=== PATIENT | female | born 1995 | race African-American/Black ===

== ENCOUNTER 2018-07-10 01:40 | Emergency (ER) | payer OTHER, SELFPAY ==
[2018-07-10 01:40] VITALS: BP 136/92; PULSE 91; RESP 16; TEMP 36.3; O2SAT 100
--- NOTE | 2018-07-10 02:05 | DI.CT.S_ITS ---
PROCEDURE: CT ABDOMEN PELVIS W CON INDICATIONS: severe mid abdominal pain, hx multiple surgeries TECHNIQUE: After the administration of intravenous contrast, 5 mm thick sections acquired from the diaphragm to the symphysis. 5 mm coronal and sagittal reformats were acquired. For radiation dose reduction, the following was used: automated exposure control, adjustment of mA and/or kV according to patient size. COMPARISON: None. FINDINGS: Image quality: Excellent. ABDOMEN: Lung bases: Lung bases are clear. Heart size is normal. Solid organs: Liver is normal in size and enhancement. Gallbladder is within normal limits. Biliary system is non dilated. Pancreas enhances normally. Spleen is normal in size and enhancement. No adrenal nodules. Kidneys demonstrate normal size and enhancement, without hydronephrosis. Peritoneum and bowel: Small hiatal hernia. Bowel loops demonstrate normal wall thickness and caliber. No free fluid or air. The appendix is normal. Nodes and vessels: No retroperitoneal or mesenteric adenopathy by size criteria. Aorta and inferior vena cava are normal in size. Miscellaneous: No ventral hernias. Surgical clip noted adjacent to the GE junction. PELVIS: Genitourinary: Bladder wall thickness is normal. 4.2 cm right adnexal cyst. Miscellaneous: No inguinal hernias or adenopathy. Bones: No suspicious bony lesions. No vertebral body compression fractures. IMPRESSION: 1. 4.2 cm right adnexal cyst. 2. No free fluid or free air. 3. No dilated loops of bowel. 4. The appendix is normal. Dictated by: Tania Goddard MD, PhD on 07/10/2018 at 9:24 Approved by: Tania Goddard MD, PhD on 07/10/2018 at 9:28
[2018-07-10] MEDS: ONDANSETRON 4 MG/2 ML INJ IV (02:31)
[2018-07-10] MEDS: PANTOPRAZOLE 40 MG VIAL IV (02:31)
[2018-07-10] MEDS: SODIUM CHLORIDE 0.9% 1,000 ML 1000 ML IV (02:31)
[2018-07-10] MEDS: HYDROMORPHONE 1 MG INJ 0.5 MG IV (02:32)
[2018-07-10 02:35] LABS: Add Manual Diff / Slide Review NO; Basophils Percent Auto 0.4 % (0-2); Eosinophils Percent Auto 0.9 % (2-4); Hematocrit 40.5 % (36-46); Hemoglobin 13.5 g/dL (12.0-16.0); Lymphocytes Percent Auto 18.5 % (25-40); Mean Corpuscular HGB Conc 33.4 % (30-36); Mean Corpuscular Hemoglobin 27.8 PG (26-34); Mean Corpuscular Volume 83.3 fL (80-100); Monocytes Percent Auto 6.9 % (3-14); Neutrophils Absolute Auto 5700 /uL (3000-5900); Neutrophils Percent Auto 73.3 % (50-75); Platelet Count 181 X10^3/uL (150-400); Red Blood Cell Count 4.86 X10^6/uL (4.0-5.2); Red Cell Distribution Width 13.7 % (11.6-14.8); White Blood Cell Count 7.8 X10^3/uL (4.5-11.0)
--- NOTE | 2018-07-10 03:06 | ED.ABDPAIN ---
HPI - Abdominal Pain General Chief Complaint: Abdominal Pain Stated Complaint: abdominal pain Time Seen by Provider: 07/10/18 01:41 Source: patient Mode of arrival: ambulatory Limitations: no limitations History of Present Illness HPI narrative: 22-year-old female with longstanding history of generalized abdominal pain presents with severe mid abdominal pain that started while at rest a few hours prior to her arrival. She denies any provocation, palliation or radiation of her symptoms. She does states she was nauseated and vomited a small amount while in the car on her way. She has had no fever or chills and denies exposure to ill persons or bad food. She denies any change in bowel habits such as constipation or diarrhea. She denies dysuria, frequency or urgency. She denies vaginal bleeding, discharge or dysuria. MD complaint: abdominal pain Onset (ago): hour(s) Pain Consistency: constant Location: periumbilical Severity: moderate Quality: cramping and aching Radiation: none Migration to: no migration Relieving factors: nothing Exacerbating factors: nothing Associated symptoms: nausea and vomiting Related Data Patient : No Previous Rx's Medication Instructions Recorded ondansetron [Zofran ODT] 8 mg SUBLINGUAL X1 #6 odt 09/03/16 ondansetron [Zofran ODT] 4 mg PO Q6H PRN #14 tab 07/10/18 pantoprazole [Protonix] 40 mg PO DAILY #20 tab 07/10/18 Allergies Allergy/AdvReac Type Severity Reaction Status Date / Time vancomycin [VANCOMYCIN] Allergy Mild NECK Unverified 02/16/18 12:27 STIFFNESS Review of Systems Review of Systems All systems reviewed & are unremarkable except as noted in HPI and below Constitutional Denies chills, Denies fever(s), Denies lethargy and Denies weakness Eyes Denies change in vision, Denies eye discharge, Denies irritation and Denies loss of vision ENT Ears, Nose, Mouth, and Throat: Denies change in voice, Denies neck pain and Denies sore throat Cardiovascular Denies chest pain, Denies irregular heart rhythm, Denies lightheadedness, Denies palpitations, Denies dyspnea, Denies dyspnea on exertion and Denies orthopnea Respiratory Denies cough, Denies dyspnea, Denies dyspnea on exertion and Denies wheezing Gastrointestinal Gastrointestinal: Reports abdominal pain, Denies change in bowel habits, Denies diarrhea, Reports nausea and Reports vomiting Genitourinary Denies hematuria, Denies flank pain, Denies urinary incontinence and Denies urinary urgency Musculoskeletal Denies neck pain Integumentary/Breasts Denies pruritus, Denies erythema, Denies rash and Denies wounds Neurologic Denies confusion, Denies loss of vision and Denies weakness Psychiatric Denies anxiety, Denies confusion, Denies depression, Denies homicidal ideation and Denies suicidal ideation Endocrine Denies palpitations Hematologic/Lymphatic Denies easy bruising Allergic/Immunologic Denies wheezing PFSH Surgical History History of Malachi fundoplication (Acute) Social History substance use type: marijuana Exam Narrative Exam Narrative: 22-year-old female in mild distress lying in the position Initial Vital Signs Initial Vital Signs: Vital Signs Temperature 97.4 F L 07/10/18 01:40 Pulse Rate 91 H 07/10/18 01:40 Respiratory Rate 16 07/10/18 01:40 Blood Pressure 136/92 H 07/10/18 01:40 Pulse Oximetry 100 07/10/18 01:40 Const General: cooperative, well developed and in distress Nutritional Appearance: well nourished Orientation: alert, awake, oriented x3 and not confused HENMT Head: normocephalic and atraumatic Ears: external ears normal and TM's normal bilaterally Nose: external nose normal and No nasal discharge Face and sinus: sinuses nontender, face symmetric, no sinus tenderness and No dry mucous membranes Mouth: oral mucosae normal and moist mucous membranes Teeth and gingiva: dentition normal Throat: tonsils normal and uvula midline Eyes General: appearance normal, both eyes and all related structures Eyelids: eyelids normal Conjunctivae: conjunctivae normal Sclera: sclerae normal Pupils: PERRL EOM: EOM intact bilaterally Chest Chest: normal inspection of the chest Resp Effort & Inspection: normal respiratory effort, able to speak in complete sentences, no respiratory distress and no use of accessory muscles Auscultation: clear to auscultation bilaterally, no rales, no rhonchi and no wheezes GI Inspection: non-distended Palpation: soft, no hepatosplenomegaly, No guarding, No pulsatile mass and tender (Mild periumbilical pain) Auscultation: normal bowel sounds Back/Spine/Pelvis Back: No CVA tenderness Cervical Spine: cervical ROM normal and No pain with cervical ROM Thoracic/Lumbar Spine: thoracic and lumbar spine normal to inspection Skin General: no rashes or lesions noted, No jaundice and No petechiae Neuro General: alert, oriented x3, gait normal and no focal motor deficits Speech: speech normal Psych Appearance: well kempt Mental Status: mental status grossly normal Attitude: cooperative Thought Content: normal and suicidality Judgment: judgment good Course Orders Ordered: ED Orders 07/10/18 02:05 CT abdomen pelvis w con Stat 07/10/18 02:20 Complete Blood Count AUTO DIFF Stat 07/10/18 02:51 Comprehensive Metabolic Panel Stat Lipase Stat 07/10/18 04:00 Urine Microscopic Stat Discontinued Medications Hydromorphone HCl (Dilaudid) 0.5 mg IV NOW ONE Stop: 07/10/18 02:04 Last Admin: 07/10/18 02:32 Dose: 0.5 mg Sodium Chloride (Normal Saline 0.9%) 1,000 mls @ 1,000 mls/hr IV BOLUS ONE Stop: 07/10/18 03:02 Last Admin: 07/10/18 02:31 Dose: 1,000 mls/hr Ondansetron HCl (Zofran) 4 mg IV NOW ONE Stop: 07/10/18 02:04 Last Admin: 07/10/18 02:31 Dose: 4 mg Pantoprazole Sodium (Protonix) 40 mg IV NOW ONE Stop: 07/10/18 02:04 Last Admin: 07/10/18 02:31 Dose: 40 mg Vital Signs - 8 hr 07/10/18 01:40 07/10/18 04:40 Temperature 97.4 F L Pulse Rate 91 H 64 Respiratory Rate 16 16 Blood Pressure 136/92 H Blood Pressure [Right Arm] 114/58 L Pulse Oximetry 100 MDM - Abdominal Pain Differential Diagnosis Differential diagnosis: Likely abdominal pain, acute appendicitis, calculus of kidney, constipation, diverticulitis, endometriosis, gastroenteritis, pancreatitis, small bowel obstruction and other Medical Records Attestation: I reviewed the patient's medical records. Lab Data Attestation: I reviewed the patient's lab results. Result diagrams: 07/10/18 02:20 07/10/18 02:51 Lab Results 07/10/18 07/10/18 07/10/18 Range/Units 02:20 02:51 04:00 WBC 7.8 (4.5-11.0) X10^3/uL RBC 4.86 (4.0-5.2) X10^6/uL Hgb 13.5 (12.0-16.0) g/dL Hct 40.5 (36-46) % MCV 83.3 (80-100) fL MCH 27.8 (26-34) PG MCHC 33.4 (30-36) % RDW 13.7 (11.6-14.8) % Plt Count 181 (150-400) X10^3/uL Neut % (Auto) 73.3 (50-75) % Lymph % (Auto) 18.5 L (25-40) % [place] % (Auto) 6.9 (3-14) % Eos % (Auto) 0.9 L (2-4) % Baso % (Auto) 0.4 (0-2) % Neut # (Auto) 5700 (7477-8021) /uL Sodium 143 (137-145) mmol/L Potassium 3.9 (3.4-5.1) mmol/L Chloride 111 H (98-107) mmol/L Carbon Dioxide 25 (22-32) mmol/L BUN 11 (7-17) mg/dL Creatinine 0.90 (0.52-1.04) mg/dL Estimated GFR > 60.0 (>60) mL/min BUN/Creatinine Ratio 12.2 (6-22) Glucose 93 (70-100) mg/dL Calcium 8.7 (8.4-10.2) mg/dL Total Bilirubin 0.5 (0.2-1.3) mg/dL AST 24 (14-36) IU/L ALT 21 (9-52) IU/L Alkaline Phosphatase 67 (38-126) U/L Total Protein 6.5 (6.3-8.2) g/dL Albumin 3.8 (3.5-5.0) g/dL Globulin 2.7 (1.7-4.1) g/dL Albumin/Globulin Ratio 1.4 (1.0-2.8) Lipase 116 (23-300) U/L Urine RBC 30-100/hpf H (0-5/HPF) Urine WBC 1-5/hpf (0-5/HPF) Ur Squamous Epith Cells 1-5 /hpf Urine Bacteria Occasional (0-1) (None) Ur Culture Indicated? Cult not indicated Micro UA Comment Not Reportable Point of care testing: Point of Care Testing Test Results Negative Urine Dip Bedside Urine Glucose Negative Bedside Urine Bilirubin - Negative Bedside Urine Ketone +++ 80 Urine Specific [place] 1.030 Bedside Urine Occult Blood +++ Bedside Urine pH 6.0 Bedside Urine Protein + 30 Bedside Urine Urobilinogen - Negative Bedside Urine Nitrite - Negative Bedside Urine Leukocytes - Negative Esterase Imaging Data CT scan - abdomen: Radiologist's impression: No acute findings. R ovarian cyst. Hiatal hernia MDM Narrative Medical decision making narrative: patient with severe midbelly pain that has dramatically improved prior to her arrival. She denies provocation/palliation/radiation. One episode of vomiting thought due to pain. Labs largely normal. Blood in urine, but she just started her menses. CT without acute findings. Dx likely GERD, ulcer, gastritis vs. other Discharge Plan Departure Patient Disposition: Home Clinical Impression: Abdominal pain Instructions: DI for Abdominal Pain-Adult Activity Restrictions/Additional Instructions: 1. Drink plenty of fluids with frequent small sips. 2. For the next 24 hours a clear liquid diet is advised. After that please employ a brat diet which would include bananas, rice, apples, toast. 3. Please take medications as directed. 4. Please follow-up with your doctor in the next 1-2 days. Call the office for an appointment. 5. Please return to the emergency Department for any worsening or persistent symptoms, such as increasing pain or fever. Prescriptions: New ondansetron [Zofran ODT] 4 mg tablet,disintegrating 4 mg PO Q6H PRN (Reason: nausea and vomiting) Qty: 14 RF: 0 pantoprazole [Protonix] 40 mg tablet,delayed release (DR/EC) 40 mg PO DAILY Qty: 20 RF: 0 No Action ondansetron [Zofran ODT] 8 MG tablet,disintegrating 8 mg Sublingual X1 Qty: 6 RF: 0
[2018-07-10 03:12] LABS: Alanine Aminotransferase 21 IU/L (9-52); Albumin 3.8 g/dL (3.5-5.0); Albumin Globulin Ratio 1.4 (1.0-2.8); Alkaline Phosphatase 67 U/L (38-126); Aspartate Aminotransferase 24 IU/L (14-36); BUN Creatinine Ratio 12.2 (6-22); Bilirubin Total 0.5 mg/dL (0.2-1.3); Blood Urea Nitrogen 11 mg/dL (7-17); Calcium 8.7 mg/dL (8.4-10.2); Carbon Dioxide 25 mmol/L (22-32); Chloride 111 mmol/L (98-107); Estimated Glomerular Filt Rate > 60.0 mL/min (>60); Globulin 2.7 g/dL (1.7-4.1); Glucose 93 mg/dL (70-100); HEMOLYSIS < 15 (0-50); Lipase 116 U/L (23-300); Potassium 3.9 mmol/L (3.4-5.1); Sodium 143 mmol/L (137-145); Total Protein 6.5 g/dL (6.3-8.2)
[2018-07-10 04:37] LABS: RBC Urine 30-100/HPF (0-5/HPF)
[2018-07-10 04:38] LABS: Bacteria Urine Occasional (0-1); Culture Indicated Urine Cult Not Indicated; Squamous Epithelial Cell Urine 1-5 /HPF; WBC Urine 1-5/HPF (0-5/HPF)
[2018-07-10 04:40] VITALS: BP 113/56; BP 114/58; PULSE 56; PULSE 64; RESP 16; O2SAT 98
[2018-07-10 06:06] VITALS: BP 112/74; PULSE 59; RESP 15; O2SAT 98
== END 2018-07-10 06:06 | disposition home or self-care (01) ==
PROVIDERS: Emergency Provider Emergency Medicine; Family Provider Family Medicine; PCP Family Medicine
DX: R10.9 Unspecified abdominal pain (principal)
CPT/HCPCS: 36415; 36591; 74177; 80053; 81003; 81015; 81025; 83690; 85025; 96361; 96374; 96375; 99283; 99284; C9113; J1170; J2405; Q9967

== ENCOUNTER → 2018-11-30 10:51 | Outpatient (CLI) | payer OTHER, MEDICAID, SELFPAY ==
[2018-11-30 11:34] LABS: Add Manual Diff / Slide Review NO; Basophils Absolute Auto 0 /uL (0-100); Basophils Percent Auto 0.9 % (0-2); Eosinophils Absolute Auto 100 /uL (0-450); Eosinophils Percent Auto 1.3 % (2-4); Hematocrit 37.4 % (36-46); Hemoglobin 12.3 g/dL (12.0-16.0); Lymphocytes Absolute Auto 1300 /uL (1100-4500); Lymphocytes Percent Auto 29.3 % (25-40); Mean Corpuscular Hemoglobin 27.4 PG (26-34); Mean Corpuscular Volume 83.1 fL (80-100); Monocytes Absolute Auto 300 /uL (0-900); Neutrophils Absolute Auto 2600 /uL (1500-7000); Neutrophils Percent Auto 61.5 % (50-75); Platelet Count 175 X10^3/uL (150-400); Red Cell Distribution Width 13.2 % (11.6-14.8); White Blood Cell Count 4.3 X10^3/uL (4.5-11.0)
[2018-11-30 11:36] LABS: Appearance Urine UA CLEAR; Bilirubin Urine UA NEGATIVE (NEGATIVE); Color Urine UA YELLOW; Glucose Urine UA NEGATIVE (Negative); Ketones Urine UA NEGATIVE (NEGATIVE); Leukocyte Esterase Urine UA NEGATIVE (NEGATIVE); Nitrite Urine UA NEGATIVE (Negative); Occult Blood Urine UA NEGATIVE (Negative); Protein Urine UA NEGATIVE (Negative); Urobilinogen Urine UA 0.2 E.U./dL (0.2)
[2018-11-30 12:21] LABS: Hepatitis B Surface Antigen NEGATIVE s/c (NEGATIVE)
[2018-11-30 12:38] LABS: HIV 1 and 2 Antibody NEGATIVE (NEGATIVE); Hep C Virus Ab w/Reflex Quant NEGATIVE s/c (NEGATIVE)
[2018-12-02 21:59] LABS: RPR Screen Nonreactive (Nonreactive)
== END ==
PROVIDERS: PCP Family Medicine; Visit Provider Family Medicine
DX: Z34.91 Encounter for supervision of normal pregnancy, unspecified, first trimester (principal)
CPT/HCPCS: 36415; 80055; 81003; 86703; 86787; 86803; 86850; 86900; 86901; 87086

== ENCOUNTER → 2018-12-09 14:37 | Outpatient (CLI) | payer OTHER, MEDICAID, SELFPAY ==
--- NOTE | 2018-12-09 14:42 | DI.US.S_ITS ---
PROCEDURE: US OB <= 14 WEEKS FETUS INDICATIONS: Dating US OUTSIDE/PRIOR DATING DATA: Last menstrual period (LMP): Not available. LMP-based estimated date of delivery (BRYAN): Not available. First dating scan (date and location): This study, 12/09/18. Estimated date of delivery (BRYAN) from first dating scan: 06/26/19, plus or -5 days. TECHNIQUE: Real-time scanning was performed of the fetus and maternal pelvic organs, with image documentation. Endovaginal scanning was also performed to better visualize the fetus and maternal ovaries. COMPARISON: None. FINDINGS: Embryo: [place] rump length 4.8 cm correlates with a gestational age estimate 11 weeks 4 days, plus or -5 days, and cardiac activity at 171 beats per minute is noted. Measurement variability in dating: +/- 4 weeks by LMP, +/- 7 days by mean sac diameter (use before 6 weeks gestation if crown-rump length not able to be measured), +/- 5 days by crown-rump length (up to 8 weeks 6 days gestation), +/- 7 days by crown-rump length (up to 13 weeks 6 days gestation). Maternal organs: Ovaries are well-visualized and there is a left ovarian cyst measuring up to 4.0 x 4.8 x 5.9 cm. The left ovary overall measures 5.9 x 4.0 x 4.4 cm as a result. No sign of ovarian torsion is present.. Limited images through the kidneys demonstrate no hydronephrosis. IMPRESSION: Early first trimester gestation with gestational age of 11 weeks 4 days, plus or -5 days. The liver is projected to be centered on 06/26/19. Followup anatomic survey at 21 weeks gestation is recommended. At that time further assessment for persistence of a dominant left ovarian cyst is recommended, measuring up to 5.9 cm. Dictated by: Ross Her M.D. on 12/09/2018 at 15:53 Approved by: Ross Her M.D. on 12/09/2018 at 15:55
== END ==
PROVIDERS: Family Provider Family Medicine; PCP Family Medicine; Visit Provider Family Medicine
DX: O34.81 Maternal care for other abnormalities of pelvic organs, first trimester (principal); N83.202 Unspecified ovarian cyst, left side; Z3A.11 11 weeks gestation of pregnancy
CPT/HCPCS: 76801

== ENCOUNTER → 2019-02-07 12:13 | Outpatient (CLI) | payer OTHER, MEDICAID, SELFPAY ==
--- NOTE | 2019-02-07 12:16 | DI.US.S_ITS ---
PROCEDURE: US OB >= 14 WEEKS FETUS INDICATIONS: anatomy screening OUTSIDE/PRIOR DATING DATA: Last menstrual period (LMP): Unknown. LMP-based estimated date of delivery (BRYAN): Unknown. First dating scan (date and location): 12/09/18. Estimated date of delivery (BRYAN) from first dating scan: 06/26/19. TECHNIQUE: Real-time scanning was performed of the fetus, with image documentation and biometric measurements. Endovaginal scanning: None COMPARISON: None. FINDINGS: General: A single living intrauterine gestation is present. Presentation: Vertex. Placenta: Placental position is posterior, without previa. Amniotic fluid index: 9.8 cm, normal range is 5-24 cm. heart rate: 155 beats per minute. Maternal cervical canal: 3.9 cm long. Normal lower limit is 2.5 cm. biometrics: Biparietal diameter: 4.4 cm, 19 weeks 3 days Head circumference: 16.7 cm, 19 weeks 3 days Abdominal circumference: 14.4 cm, 19 weeks 5 days Femur length: 3.2 cm, 20 weeks zero days Estimated gestational age from initial scan: 20 weeks one day Composite gestational age from present scan: 19 weeks 5 days Estimated weight and percentile: 312 g, 26 percentile Measurement variability for biometric dating: +/- 7 days from 14 weeks to 15 weeks 6 days gestation, +/- 10 days from 16 weeks to 21 weeks 6 days gestation, +/- 2 weeks from 22 weeks to 27 weeks 6 days gestation, +/- 3 weeks for 28 weeks gestation or later. weight reference: 4500 g or EFW >90/95% is considered macrosomia or large for gestational age. EFW <10% is small for gestational age. EFW 5% or less is considered intra-uterine growth restriction. Anatomic survey: Neuro: Ventricles are non-dilated at less than 10 mm. Cisterna magna is normal at 3-11 mm. Cerebellum is normal in size and morphology. Nuchal skin fold: Normal at less than 6 mm between 14-21 weeks gestational age. Face: Nose and lips, facial profile are normal. Spine: No evidence for spina bifida. Heart: 4-chambered heart is present, with normal ventricular outflow tracts. Diaphragm: Diaphragm is intact. Stomach: Left-sided stomach is present. Kidneys: No hydronephrosis. Normal is less than 5 mm in 2nd trimester, less than 7 mm in 3rd trimester. Cord: 3-vessel cord has orthotopic insertion. Bladder: Normal in size. Extremities: All 4 extremities identified. IMPRESSION: Normal anatomical survey. Ultrasound age is 2 days less than ultrasound age established on initial study. Normal interval growth. Dictated by: Edson Valencia M.D. on 02/07/2019 at 14:51 Approved by: Edson Valencia M.D. on 02/07/2019 at 14:58
[2019-02-13 14:47] LABS: AFP, Serum 36.7 ng/mL; Calc Gestational Age 20.1; Cigarette Smoker N; Donated Egg NOT GIVEN; Donor Egg Age NOT GIVEN; Estriol, Free 1.99 ng/mL; Inhibin A, Dimeric 386 pg/mL; Maternal Ethnicity AFRICAN AMERICAN; Maternal Weight 136 lbs; Number of Fetuses NOT GIVEN; Previous Pregnancy Down Syndro NOT GIVEN; hCG, MoM 0.93; hCG, Serum 20.5 IU/mL
== END ==
PROVIDERS: Family Provider Family Medicine; PCP Family Medicine; Visit Provider Family Medicine
DX: Z36.89 Encounter for other specified antenatal screening (principal); Z3A.19 19 weeks gestation of pregnancy
CPT/HCPCS: 36415; 76811; 82105; 82677; 84702; 86336

== ENCOUNTER → 2019-03-09 15:15 | Outpatient (CLI) | payer OTHER, MEDICAID, SELFPAY ==
[2019-03-12 15:57] LABS: Mitogen-NIL 7.23 IU/mL; NIL 0.01 IU/mL; QuantiFERON TB NEGATIVE (Negative); TB1-NIL 0.01 IU/mL; TB2-NIL < 0.01 IU/mL
== END ==
PROVIDERS: PCP Family Medicine; Visit Provider Family Medicine
DX: Z34.02 Encounter for supervision of normal first pregnancy, second trimester (principal)
CPT/HCPCS: 36415; 86480

== ENCOUNTER → 2019-04-06 11:00 | Outpatient (CLI) | payer OTHER, MEDICAID, SELFPAY ==
[2019-04-06 12:47] LABS: Hematocrit 31.8 % (36-46); Hemoglobin 10.6 g/dL (12.0-16.0)
[2019-04-06 13:13] LABS: GTT (PREG) 1 Hour PP 50gm Dose 74 mg/dL (76-139)
== END ==
PROVIDERS: PCP Family Medicine; Visit Provider Family Medicine
DX: Z34.02 Encounter for supervision of normal first pregnancy, second trimester (principal); Z3A.25 25 weeks gestation of pregnancy
CPT/HCPCS: 36415; 82950; 85014; 85018

== ENCOUNTER → 2019-04-24 11:29 | Outpatient (CLI) | payer OTHER, MEDICAID, SELFPAY ==
[2019-04-24 11:37] LABS: RBC Urine None Seen (0-5/HPF); WBC Urine None Seen (0-5/HPF)
[2019-04-24 12:27] LABS: Add Manual Diff / Slide Review NO; Basophils Absolute Auto 0 /uL (0-100); Basophils Percent Auto 0.3 % (0-2); Eosinophils Absolute Auto 0 /uL (0-450); Eosinophils Percent Auto 0.6 % (2-4); Hematocrit 34.7 % (36-46); Hemoglobin 11.3 g/dL (12.0-16.0); Lymphocytes Absolute Auto 1400 /uL (1100-4500); Lymphocytes Percent Auto 25.8 % (25-40); Mean Corpuscular HGB Conc 32.6 % (30-36); Mean Corpuscular Hemoglobin 28.2 PG (26-34); Mean Corpuscular Volume 86.7 fL (80-100); Monocytes Absolute Auto 400 /uL (0-900); Monocytes Percent Auto 8.1 % (3-14); Neutrophils Absolute Auto 3400 /uL (1500-7000); Neutrophils Percent Auto 65.2 % (50-75); Platelet Count 144 X10^3/uL (150-400); Red Cell Distribution Width 13.7 % (11.6-14.8); White Blood Cell Count 5.3 X10^3/uL (4.5-11.0)
[2019-04-24 12:28] LABS: Bilirubin Urine UA NEGATIVE (NEGATIVE); Color Urine UA YELLOW; Glucose Urine UA NEGATIVE (Negative); Ketones Urine UA NEGATIVE (NEGATIVE); Leukocyte Esterase Urine UA NEGATIVE (NEGATIVE); Nitrite Urine UA NEGATIVE (Negative); Occult Blood Urine UA NEGATIVE (Negative); Protein Urine UA NEGATIVE (Negative); Urobilinogen Urine UA 0.2 E.U./dL (0.2); pH Urine UA 7.5 (4.5-8.0)
[2019-04-24 12:29] LABS: Appearance Urine UA Cloudy
[2019-04-24 12:43] LABS: Amorphous Sediment Urine 2+; Bacteria Urine Few (2-10); Culture Indicated Urine Cult Not Indicated; Squamous Epithelial Cell Urine 0-1 /HPF (0-5/HPF)
[2019-04-24 13:15] LABS: Alanine Aminotransferase 12 IU/L (9-52); Albumin 3.5 g/dL (3.5-5.0); Albumin Globulin Ratio 1.3 (1.0-2.8); Alkaline Phosphatase 79 U/L (38-126); Aspartate Aminotransferase 19 IU/L (14-36); BUN Creatinine Ratio 8.8 (6-22); Bilirubin Total 0.3 mg/dL (0.2-1.3); Blood Urea Nitrogen 7 mg/dL (7-17); Carbon Dioxide 26 mmol/L (22-32); Chloride 107 mmol/L (98-107); Estimated Glomerular Filt Rate > 60.0 mL/min (>60); Globulin 2.7 g/dL (1.7-4.1); Glucose 60 mg/dL (70-100); HEMOLYSIS < 15 (0-50); Potassium 3.9 mmol/L (3.4-5.1); Sodium 139 mmol/L (137-145); Total Protein 6.2 g/dL (6.3-8.2)
== END ==
PROVIDERS: PCP Family Medicine; Visit Provider Family Medicine
DX: R10.11 Right upper quadrant pain (principal)
CPT/HCPCS: 36415; 80053; 81001; 85025

== ENCOUNTER → 2019-04-28 08:07 | Outpatient (CLI) | payer OTHER, MEDICAID, SELFPAY ==
--- NOTE | 2019-04-28 08:08 | DI.US.S_ITS ---
PROCEDURE: US ABDOMEN COMPLETE INDICATIONS: RIGHT UPPER QUADRANT PAIN TECHNIQUE: Real-time scanning was performed of the abdominal and retroperitoneal organs, with image documentation. COMPARISON: None. FINDINGS: Liver: Liver is normal in size and homogeneous in echotexture. Gallbladder: There is no gallstone. No gallbladder wall thickening or pericholecystic fluid. No sonographic Galvin's sign. Biliary ducts: Intrahepatic bile ducts are non-dilated. Extrahepatic bile duct caliber measures 3.5 mm. Normal is 6-7 mm or less in diameter, or 10 mm or less post-cholecystectomy. Pancreas: Visualized portions of the pancreas are sonographically normal. Spleen: Spleen is normal in size and homogeneous in echotexture. Kidneys: Kidneys are normal in size and echotexture. Right kidney measures 9.8 cm long; left kidney measures 9.9 cm long. No hydronephrosis or nephrolithiasis. No solid masses. Aorta: Visualized aorta is normal in caliber at less than 3 cm. Iliacs: Proximal common iliac arteries are normal in caliber at less than 2.5 cm. IVC: Intrahepatic inferior vena cava is patent. Miscellaneous: No free abdominal fluid. IMPRESSION: Unremarkable ultrasound examination of abdomen. Dictated by: Dave Abarca M.D. on 04/28/2019 at 9:31 Approved by: Dave Abarca M.D. on 04/28/2019 at 9:36
== END ==
PROVIDERS: PCP Family Medicine; Visit Provider Family Medicine
DX: R10.11 Right upper quadrant pain (principal)
CPT/HCPCS: 76700

== ENCOUNTER 2019-05-17 19:52 | Observation (INO) | payer OTHER, MEDICAID, SELFPAY ==
[2019-05-17] MEDS: LACTATED RINGERS 1,000 ML 1000 ML IV ×2 (21:00→22:10)
== END 2019-05-17 23:05 | disposition home or self-care (01) ==
PROVIDERS: Admitting Provider Obstetrics & Gynecology; PCP Family Medicine; Visit Provider Obstetrics & Gynecology
DX: O21.2 Late vomiting of pregnancy (principal); R19.7 Diarrhea, unspecified; Z3A.34 34 weeks gestation of pregnancy
CPT/HCPCS: 59025; 59050; 96360; G0378; G0379

== ENCOUNTER 2019-05-18 03:19 | Observation (INO) | payer OTHER, MEDICAID, SELFPAY ==
[2019-05-18] MEDS: LOPERAMIDE 2 MG CAPSULE PO (04:02)
[2019-05-18] MEDS: LACTATED RINGERS 1,000 ML, LACTATED RINGERS 1,000 ML 1000 ML IV (04:03)
== END 2019-05-18 07:25 | disposition home or self-care (01) ==
PROVIDERS: Admitting Provider Obstetrics & Gynecology; PCP Family Medicine; Visit Provider Obstetrics & Gynecology
DX: O26.893 Other specified pregnancy related conditions, third trimester (principal); R10.9 Unspecified abdominal pain; R11.11 Vomiting without nausea; Z3A.34 34 weeks gestation of pregnancy
CPT/HCPCS: 59025; 59050; 96360; G0378; G0379

== ENCOUNTER → 2019-05-29 08:39 | Outpatient (CLI) | payer OTHER, MEDICAID, SELFPAY ==
[2019-05-30 14:58] LABS: Strep Grp B PCR NEG for Grp B Strep
== END ==
PROVIDERS: PCP Family Medicine; Visit Provider Family Medicine
DX: Z3A.36 36 weeks gestation of pregnancy (principal)
CPT/HCPCS: 87653

== ENCOUNTER 2019-06-05 11:25 | Outpatient (CLI) | payer OTHER, MEDICAID, SELFPAY ==
--- NOTE | 2019-06-05 13:20 | P.TNLD_ITS ---
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) Septic joint (Resolved) Surgical History History of Malachi fundoplication (Resolved ~2006) History of hip surgery (Resolved) History of tonsillectomy (Resolved) [place] teeth removed (Resolved) Family History Mother Chronic nephritis Grandmother History of Graves' disease Social History (Updated 07/10/18 @ 03:11 by Anthony Rolle DO) Smoking Status: Never smoker substance use type: marijuana Family History Mother Chronic nephritis Grandmother History of Graves' disease Social History Smoking Status: Never smoker substance use type: marijuana Evaluation Evaluation Baseline heart rate: 130 Variability: Moderate (11-25) monitor accelerations: Present monitor decelerations: Absent Diagnosis, Plan/Disposition Final Diagnosis (1) 37 weeks gestation of : Current Visit: No Status: Acute Plan/Disposition Plan: 23 year old at 37+1 weeks gestation. Reactive NST today. Seen last week by MFM for h/o JRA, found to have abdominal circumference at the 3rd percentile though remainder of growth on track with EFW at the 21st percentile. Concern for growth restriction. Will continue weekly NST per MFM and repeat US later this week. OB Disposition: home
== END 2019-06-05 12:22 | disposition home or self-care (01) ==
LOC: LABOR 11:43 → OB 06-06 10:31
PROVIDERS: PCP Family Medicine; Visit Provider Family Medicine
DX: O26.893 Other specified pregnancy related conditions, third trimester (principal); Z3A.37 37 weeks gestation of pregnancy
CPT/HCPCS: 59025; G0378; G0379

== ENCOUNTER → 2019-06-09 08:07 | Outpatient (CLI) | payer OTHER, MEDICAID, SELFPAY ==
--- NOTE | 2019-06-09 08:09 | DI.US.S_ITS ---
PROCEDURE: OB FOLLOW UP INDICATIONS: CONCERN FOR INTRAUTERINE GROWTH RESTRICTION OUTSIDE/PRIOR DATING DATA: Last menstrual period (LMP): Unknown. LMP-based estimated date of delivery (BRYAN): Unknown. First dating scan (date and location): 12/09/18. Estimated date of delivery (BRYAN) from first dating scan: 06/26/19. TECHNIQUE: Real-time scanning was performed of the fetus, with image documentation and biometric measurements. Endovaginal scanning: Not performed COMPARISON: [facility] OB >= 14 WEEKS FETUS, 02/07/2019, 12:39. [facility] OB <= 14 WEEKS FETUS, 12/09/2018, 14:57. FINDINGS: General: A single living intrauterine gestation is present. Presentation: Vertex. Placenta: Placental position is posterior, without previa. Amniotic fluid index: 13.0 cm, normal range is 5-24 cm. heart rate: 128 beats per minute. Maternal cervical canal: Not visualized biometrics: Biparietal diameter: 9.1 cm, 36 weeks 6 days Head circumference: 32.4 cm, 36 weeks 5 days Abdominal circumference: 29.4 cm, 33 weeks 3 days Femur length: 7.3 cm, 37 weeks 3 days Estimated gestational age from initial scan: 37 weeks 4 days Composite gestational age from present scan: 36 weeks one day Estimated weight and percentile: 2626 g, 10th percentile Measurement variability for biometric dating: +/- 7 days from 14 weeks to 15 weeks 6 days gestation, +/- 10 days from 16 weeks to 21 weeks 6 days gestation, +/- 2 weeks from 22 weeks to 27 weeks 6 days gestation, +/- 3 weeks for 28 weeks gestation or later. weight reference: 4500 g or EFW >90/95% is considered macrosomia or large for gestational age. EFW <10% is small for gestational age. EFW 5% or less is considered intra-uterine growth restriction. Other: 3 mm echogenic focus dome possibly calcification seen adjacent to the stomach of unknown etiology or clinical significance.. IMPRESSION: Intrauterine fetus demonstrating interval growth as above. Estimated weight 2626 g, 10th percentile (previously 26th percentile on 02/07/19). Dictated by: Kalus Blanchard M.D. on 06/09/2019 at 12:43 Approved by: Klaus Blanchard M.D. on 06/09/2019 at 12:48
== END ==
PROVIDERS: PCP Family Medicine; Visit Provider Family Medicine
DX: Z36.4 Encounter for antenatal screening for fetal growth retardation (principal); Z3A.36 36 weeks gestation of pregnancy
CPT/HCPCS: 76816

== ENCOUNTER 2019-06-14 10:49 | Outpatient (CLI) | payer OTHER, MEDICAID, SELFPAY ==
--- NOTE | 2019-06-14 11:57 | PM.OBTRLD ---
Visit Information Visit Information Date of evaluation: 06/14/19 Primary OB Provider: Maribell Reza On-call OB Provider: Marnie Romo Reason for Evaluation: Yes non-stress test non-stress test reason: other (small AC on US for fundal height> dates) PFSH Social History Smoking Status: Never smoker substance use type: marijuana Evaluation Evaluation Baseline heart rate: 140 Variability: Moderate (11-25) monitor accelerations: Present monitor decelerations: Absent Diagnosis, Plan/Disposition Final Diagnosis (1) 38 weeks gestation of : Current Visit: No Status: Acute (2) SGA (small for gestational age), , affecting care of mother, antepartum: Current Visit: No Status: Acute Plan/Disposition Plan: Reactive nonstress test. ELENA has decreased to 7. Keep follow-up appointment with primary OB provider in 4 days repeat ELENA at that time OB Disposition: home
== END 2019-06-14 11:53 | disposition home or self-care (01) ==
LOC: LABOR 11:27 → OB 06-15 12:04
PROVIDERS: PCP Family Medicine; Visit Provider Specialist
DX: O36.5930 Maternal care for other known or suspected poor fetal growth, third trimester, not applicable or unspecified (principal); Z3A.38 38 weeks gestation of pregnancy
CPT/HCPCS: 59025; 76815; G0378; G0379

== ENCOUNTER 2019-06-19 09:10 | Outpatient (CLI) | payer OTHER, MEDICAID, SELFPAY ==
--- NOTE | 2019-06-19 12:46 | PM.OBTRLD ---
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) Septic joint (Resolved) Surgical History History of Malachi fundoplication (Resolved ~2006) History of hip surgery (Resolved) History of tonsillectomy (Resolved) [place] teeth removed (Resolved) Family History Mother Chronic nephritis Grandmother History of Graves' disease Social History Smoking Status: Never smoker substance use type: marijuana Family History Mother Chronic nephritis Grandmother History of Graves' disease Social History Smoking Status: Never smoker substance use type: marijuana Evaluation Evaluation Baseline heart rate: 140 Variability: Moderate (11-25) monitor accelerations: Present monitor decelerations: Absent Category of Tracing: I Diagnosis, Plan/Disposition Plan/Disposition Plan: Reactive NST. ELENA 12.9, up from 7 last week. Plan for induction at 40 weeks due to small for dates measurements without IUGR.
== END 2019-06-19 09:48 | disposition home or self-care (01) ==
LOC: OB 12:29
PROVIDERS: PCP Family Medicine; Visit Provider Family Medicine
DX: O36.5930 Maternal care for other known or suspected poor fetal growth, third trimester, not applicable or unspecified (principal); Z3A.39 39 weeks gestation of pregnancy
CPT/HCPCS: 59025; G0378; G0379

== ENCOUNTER → 2019-06-19 11:39 | Outpatient (CLI) | payer OTHER, MEDICAID, SELFPAY ==
--- NOTE | 2019-06-19 11:40 | DI.US.S_ITS ---
PROCEDURE: US OB LIMITED INDICATIONS: decreased ELENA on exam last week from 14 to 7 OUTSIDE/PRIOR DATING DATA: Last menstrual period (LMP): Not available. LMP-based estimated date of delivery (BRYAN): Not available. First dating scan (date and location): Dr. Mclaughlin, 12/09/18. Estimated date of delivery (BRYAN) from first dating scan: 06/26/19. TECHNIQUE: Real-time scanning was performed of the fetus, with image documentation. Endovaginal scanning: Not needed for this study COMPARISON: None. FINDINGS: A single living intrauterine gestation is present. Presentation: Vertex. Placenta: Placental position is posterior, previously documented without previa. Maternal cervical canal: Not seen due to deep vertex presentation. Amniotic fluid index: Normal. IMPRESSION: Normal amniotic fluid volume. Vertex presentation which obscures visualization of the maternal cervical length. Dictated by: Ross Her M.D. on 06/19/2019 at 13:05 Approved by: Ross Her M.D. on 06/19/2019 at 13:10
== END ==
PROVIDERS: PCP Family Medicine; Visit Provider Family Medicine
DX: O28.8 Other abnormal findings on antenatal screening of mother (principal); O36.5990 Maternal care for other known or suspected poor fetal growth, unspecified trimester, not applicable or unspecified; Z3A.39 39 weeks gestation of pregnancy
CPT/HCPCS: 59025; 76815

== ENCOUNTER 2019-06-25 16:04 | Inpatient (IN) | payer OTHER, MEDICAID, SELFPAY ==
[2019-06-25] MEDS: DINOPROSTONE VAG (CERVIDIL) 10 MG VAG (16:57)
[2019-06-25 21:14] LABS: Add Manual Diff / Slide Review NO; Basophils Absolute Auto 0 /uL (0-100); Basophils Percent Auto 0.4 % (0-2); Eosinophils Absolute Auto 0 /uL (0-450); Eosinophils Percent Auto 0.5 % (2-4); Hemoglobin 11.9 g/dL (12.0-16.0); Lymphocytes Absolute Auto 2400 /uL (1100-4500); Lymphocytes Percent Auto 28.6 % (25-40); Mean Corpuscular HGB Conc 33.9 % (30-36); Mean Corpuscular Hemoglobin 28.5 PG (26-34); Monocytes Absolute Auto 700 /uL (0-900); Monocytes Percent Auto 8.2 % (3-14); Neutrophils Absolute Auto 5300 /uL (1500-7000); Neutrophils Percent Auto 62.3 % (50-75); Platelet Count 159 X10^3/uL (150-400); Red Blood Cell Count 4.16 X10^6/uL (4.0-5.2); Red Cell Distribution Width 13.8 % (11.6-14.8); White Blood Cell Count 8.5 X10^3/uL (4.5-11.0)
[2019-06-25] MEDS: ZOLPIDEM 5 MG TABLET PO (21:53)
[2019-06-26] MEDS: LACTATED RINGERS 1,000 ML 100 ML IV ×2 (06:30→09:39)
[2019-06-26] MEDS: OXYTOCIN PREMIX 30 UNIT/500 ML PLAST..BAG IV (06:45)
--- NOTE | 2019-06-26 07:04 | P.HPOB_ITS ---
OB HPI Date/Time Date of admission: 06/25/19 Date Patient Seen: 06/26/19 Time Patient Seen: 07:15 History of Present Condition Chief complaint: eval of labor : 1 Para: 0 Estimated Date of Delivery: 06/26/19 Estimated Gestational Age (weeks): 40 Narrative: Nasim Trivedi is a 23 year old at 40 weeks here for induction for size<dates noted the last month of . Serial ultrasounds consistently showed decreased abdominal circumference but remaining measurements on track with normal fluid volumes. Patient had weekly NSTs due to h/o JRA (inactive during ). Patient was admitted last night for Cervidil. She slept well overnight and endorses some cramping this morning. Indications Indication for induction OB: other (size<dates, concern for SGA) History of Present care: good care, initiated at week # (12), number of visits (13) and pounds weight gain (15) Dating criteria: based on 1st trimester US only Ultrasounds: normal 1st trimester US and normal mid trimester US Abnormal ultrasound findings: Abdominal circumference in the 3rd percent 35 weeks, repeat ultrasound done at 30 weeks showed persistently small abdominal circumference behind other measurements. Obstetrical complications: none Medical complications: gastrointestinal (GERD) Preadmission Labs Blood type: B (+) positive -: Antibody screen: negative, GBS status: negative, HBsAG: negative, HIV: negative and RPR/VDLR: negative -: Chlamydia screen: not detected and Gonorrhea screen: not detected -: Rubella: immune and Varicella: immune HCT: 37.4 HCAB: negative PAP: Abnormal (ASCUS) Quad screen: Normal Urine: Negative 1 hr GTT: 74 Evaluation Evaluation Baseline heart rate: 130 Variability: Moderate (11-25) monitor accelerations: Present monitor decelerations: Absent Contraction Frequency (minutes): 4 Uterine Contraction Intensity: Moderate Category of Tracing: I Cervical dilation (cm): 3 Cervical effacement (%): 90 station: 0 Laboratory results: Laboratory Tests 06/25/19 06/25/19 20:55 20:55 WBC 8.5 RBC 4.16 Hgb 11.9 L Hct 35.0 L MCV 84.0 MCH 28.5 MCHC 33.9 RDW 13.8 Plt Count 159 Neut % (Auto) 62.3 Lymph % (Auto) 28.6 [place] % (Auto) 8.2 Eos % (Auto) 0.5 L Baso % (Auto) 0.4 Neut # (Auto) 5300 Lymph # (Auto) 2400 [place] # (Auto) 700 Eos # (Auto) 0 Baso # (Auto) 0 Blood Type B Positive Antibody Screen Negative [facility] Medical History Anxiety (Chronic) GERD (gastroesophageal reflux disease) (Chronic) 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) Septic joint (Resolved) Surgical History History of Malachi fundoplication (Resolved ~2006) History of hip surgery (Resolved) History of tonsillectomy (Resolved) [place] teeth removed (Resolved) Family History Mother Chronic nephritis Grandmother History of Graves' disease Social History Smoking Status: Never smoker substance use type: marijuana Family History Mother Chronic nephritis Grandmother History of Graves' disease Social History Smoking Status: Never smoker substance use type: marijuana Meds Home Medications Medication Instructions Recorded Confirmed Type 1 tab PO DAILY 11/30/18 06/23/19 History vitamin,calcium,nwqivqjl-jmji-gwcea acid tablet omeprazole 20 mg capsule,delayed 20 mg PO DAILY #90 cap 06/08/19 06/23/19 Rx release Allergies Allergy/AdvReac Type Severity Reaction Status Date / Time vancomycin [VANCOMYCIN] Allergy Mild NECK Verified 06/23/19 10:53 STIFFNESS Review of Systems Constitutional Constitutional: Denies fatigue, Denies fever(s) and Denies headache(s) ENT Ears, Nose, Mouth, and Throat: No headache(s) Cardiovascular Cardiovascular: Denies chest pain Respiratory Respiratory: Denies cough Gastrointestinal Gastrointestinal: Denies abdominal pain, Denies constipation, Denies nausea and Denies vomiting Neurologic Neurologic: Denies headache(s) Endocrine Endocrine: Denies fatigue Exam Const General: healthy appearing and comfortable [facility] Head: normal to inspection Ears: hearing grossly normal bilaterally Nose: external nose normal Face and sinus: normal facial exam Mouth: oral mucosae normal Eyes General: appearance normal, both eyes and all related structures Neck Neck: normal visual inspection Resp Effort & Inspection: normal respiratory effort Auscultation: clear to auscultation bilaterally Cardio Rate: regular rate Rhythm: regular rhythm Heart Sounds: no murmurs GI Other: Gravid External Female Exam: external appearance normal Manual OB Exam: dilated 3, effaced (90) and station 0 Presentation: vertex Estimated Weight (lbs): 6 Back/Spine/Pelvis Back: normal to inspection Skin General: no rashes or lesions noted Extrem General: normal to inspection and no pedal edema Objective Labs Result Diagrams: 06/25/19 20:55 Labs: Laboratory Results - last 24 hr 06/25/19 06/25/19 20:55 20:55 WBC 8.5 RBC 4.16 Hgb 11.9 L Hct 35.0 L MCV 84.0 MCH 28.5 MCHC 33.9 RDW 13.8 Plt Count 159 Neut % (Auto) 62.3 Lymph % (Auto) 28.6 [place] % (Auto) 8.2 Eos % (Auto) 0.5 L Baso % (Auto) 0.4 Neut # (Auto) 5300 Lymph # (Auto) 2400 [place] # (Auto) 700 Eos # (Auto) 0 Baso # (Auto) 0 Blood Type B Positive Antibody Screen Negative Assessment and Plan Assessment and Plan Assessment and Plan narrative: 23 year old at 40 weeks gestation here for induction due to small AC and size<dates concerning for growth restriction. Patient received Cervidil overnight. Biship score is 9 this morning. Plan - Pitocin per protocol - GBS negative, no prophylaxis needed - Epidural upon patient request
[2019-06-26] MEDS: fentaNYL 100 MCG/2 ML INJ 50 MCG IV (08:50)
--- NOTE | 2019-06-26 11:22 | PM.OBPRVD ---
Delivery date: 06/26/19 Intrapartal events: None Cervical ripening method: per Cervidil protocol Induction method: per pitocin protocol Delivery augmentation: rupture of membranes Delivery monitor: external FHT Route of delivery: L&D Laceration Description: Perineal - 2nd Degree and Vaginal - 2nd Degree Delivery repair: vicryl Estimated blood loss (mL): 350 Anesthesia type: Epidural Narrative: Patient is a 23-year-old at 40 weeks who gave on 06/26/19 at 10:40 a.m.. BRYAN: 06/26/19 Hospital problems: STAGE I: Labor Patient received Cervidil overnight then started Pitocin per protocol at approximately a.m. 6:45 a.m.. Contractions became painful at 8:30 a.m. inpatient requested an epidural after a trial of nitrous oxide. Patient was found to be complete at 10:00 a.m. with a bulging bag. Artificial rupture of membranes returned with clear fluid. Stage I duration 1 hour 30 minutes. STAGE II: Delivery The second stage of labor lasted 40 minutes. Spontaneous vaginal delivery occurred at 10:40 a.m.. Infant was vertex and ROBERT. There was a tight nuchal cord which would not reduce so delivered through the cord. was immediately placed on mother's abdomen. Cord was clamped and cut after 1 minute delay. Apgars were 8 and 9. No resuscitation of the required the on the usual drying, stimulating and bulb suction. STAGE III: Placenta/Cord Placenta delivered spontaneously after active management and appeared intact with a three-vessel cord. Stage III duration for minutes. Placenta was noted to have scattered calcifications. Second-degree vaginal and second-degree perineal lacerations were repaired in the usual fashion with 4 0 Vicryl. There was a small extension of the vaginal laceration on the left side of the vagina which was also repaired. Hemostasis achieved. EBL: 350 mL. Needle and sponge counts were correct. The vagina was inspected and no items were left in situ. [] was doing well with Macy, her and boyfriend at bedside. Baby 1: Infant gender: Male Presentation: vertex position: Right Occiput Anterior Placenta delivery description: Spontaneous cord vessel description: Nuchal Cord (Tight nuchal, unable to reduce, delivered through) score (1 min): 8 score (5 min): 9
[2019-06-26] MEDS: IBUPROFEN 600 MG TABLET PO ×2 (14:10→21:36)
[2019-06-26] MEDS: OXYCODONE IR 5 MG TABLET PO (19:46)
[2019-06-27] MEDS: OXYCODONE IR 5 MG TABLET PO ×3 (01:25→10:02)
[2019-06-27] MEDS: IBUPROFEN 600 MG TABLET PO ×2 (04:06→10:12)
--- NOTE | 2019-06-27 08:18 | PM.OBDS.1 ---
Discharge Providers Date of admission: 06/25/19 16:04 Discharge Date: 06/27/19 Primary care physician: Maribell Reza DO Consults: 06/26/19 13:37 Consult to Contract Negotiation Specialist Routine Comment: Discharge provider: Maribell Reza DO Summary Date Patient Seen: 06/27/19 Time Patient Seen: 08:00 Procedures: Spontaneous vaginal delivery Epidural analgesia Hospital Course: 23 year old s/p uncomplicated on 06/26/19 at 40 weeks gestation. Patient was induced due to concern for growth restriction due to small AC on serial ultrasounds at the end of the . She received Cervidil overnight followed by pitocin. She progressed rapidly with pitocin, received an epidural with good pain control and delivered a healthy male weighing 7 lb 1 oz. Second degree vaginal and perineal lacerations were repaired in the usual fashion. No complications . Patient was ambulating voiding, eating and passing gas and had no complaints. Bleeding was moderate. Pain controlled with ibuprofen and oxycodone. Breast-feeding was going very well. No issues in the . Peripartum Data Delivery Method: Natural Vaginal Laceration description: Vaginal - 2nd Degree complications: none [place] 1: Gender: Male Disposition of : home Discharge Diagnosis (1) 40 weeks gestation of : Status: Acute (2) Spontaneous vaginal delivery: Status: Acute Time Spent with Patient Total time spent providing and/or coordinating discharge services: Objective Labs Result Diagrams: 06/25/19 20:55 Exam Vital Signs (past 8 hours): Temperature 98.8? blood pressure 103/57 her rate 79 respirations 16 General: Awake and alert, no acute distress. HEENT: NCAT, EOMI, moist oral mucosa CV: Regular rate and rhythm, no murmurs, rubs or gallops Lungs: CTAB, no wheezes, rales, or rhonchi Abdomen: Soft, nontender; bowel tones active; uterus firm 2 cm below umbilicus Extremities: Warm, no edema, 2+ pedal pulses bilaterally Discharge Plan Discharge Plan Patient Disposition: Home Discharge comment: Call for fevers, severe pain or bleeding through more than a pad an hour. Discharge Med Rec/Prescriptions Prescriptions: New ibuprofen 600 mg Tablet 600 mg PO Q6HR PRN (Reason: Pain, Mild (1-3)) Qty: 30 RF: 0 docusate sodium 250 mg Capsule 250 mg PO DAILY Qty: 30 RF: 0 oxycodone 5 mg Tablet 5 mg PO Q4H PRN (Reason: Pain, Moderate (4-6)) Qty: 10 RF: 0 Continued omeprazole 20 mg capsule,delayed release(DR/EC) 20 mg PO DAILY Qty: 90 RF: 3 prenat.vits,jean claude,wyq-nuey-htvkq tablet 1 tab PO DAILY RF: 0 Follow up/Referrals: Maribell Reza DO [Primary Care Provider] - 6 Weeks (Mom will schedule 6 week follow up at Baby's appointment on 06/30) Provider Discharge Instructions Diet: Diet as Tolerated Skin/Wound/Dressing Care Report to your healthcare provider any signs of infection, such as:: chills, fever, night sweats and increased pain Visit Report/Discharge Packet Stand Alone Forms: Discharge: Care Visit Report Forms: Stroke Signs & Symptoms Discharge Data Primary Care Provider: Maribell Reza Attending Provider: Maribell Reza Admit Date/Time: 06/25/19 16:04 Discharges patient from system. Discharge Date/Time: 06/27/19 11:57
[2019-06-27 12:04] VITALS: BP 107/65; PULSE 75; RESP 16; TEMP 36.8
== END 2019-06-27 11:57 | disposition home or self-care (01) | DRG 807 ==
PROVIDERS: Admitting Provider Family Medicine; PCP Family Medicine; Visit Provider Family Medicine
DX: O36.5930 Maternal care for other known or suspected poor fetal growth, third trimester, not applicable or unspecified (principal); Z37.0 Single live birth; Z3A.40 40 weeks gestation of pregnancy; O69.81X0 Labor and delivery complicated by cord around neck, without compression, not applicable or unspecified; O70.1 Second degree perineal laceration during delivery
CPT/HCPCS: 01967; 59050; 59200; 59400; 85025; 86850; 86900; 86901; G0379; J2590; J3010

== ENCOUNTER 2019-06-29 11:18 | Inpatient (IN) | payer OTHER, MEDICAID, SELFPAY ==
[2019-06-29] VITALS (7 sets, daily range): BP systolic 111–129; BP diastolic 59–79; PULSE 85–110; RESP 15–18; TEMP 36.8–38.3; O2SAT 98–100; BMI 21.2
--- NOTE | 2019-06-29 11:24 | ED.FEVER ---
HPI - Fever <KAIN Beckham-BC - Last Filed: 06/29/19 16:29> General Chief Complaint: Fever Stated Complaint: 4 days /fever/RLQ pain x2 days Time Seen by Provider: 06/29/19 11:42 Source: patient Mode of arrival: ambulatory Limitations: no limitations History of Present Illness HPI Narrative: Female status post arm complicated spontaneous vaginal delivery on 06/26/19 at 40 weeks gestation who presents with a chief complaint of fever . She is a nonsmoker presents with her boyfriend. She is 4 days and yesterday started having some right lower quadrant pain. She states is not radiating, states it stays in her right lower quadrant. She complains of slight dysuria, no urgency or frequency. She denies any nausea vomiting or diarrhea. She states that she took some oxycodone for the pain yesterday, it did not touch it. She states she is eating drinking avoiding well. She denies any constipation. She denies any breast pain or symptoms of mastitis. Related Data Home Medications Medication Instructions Recorded Confirmed 1 tab PO DAILY 11/30/18 06/29/19 vitamin,calcium,[id number] acid tablet difluprednate [Durezol] 1 unit EYE-LEFT TID 06/29/19 06/29/19 Previous Rx's Medication Instructions Recorded omeprazole 20 mg capsule,delayed 20 mg PO DAILY #90 cap 06/08/19 release docusate sodium 250 mg PO DAILY #30 cap 06/27/19 ibuprofen 600 mg PO Q6HR PRN #30 tab 06/27/19 oxycodone 5 mg PO Q4H PRN #10 tab 06/27/19 Allergies Allergy/AdvReac Type Severity Reaction Status Date / Time vancomycin [VANCOMYCIN] Allergy Mild NECK Verified 06/29/19 20:46 STIFFNESS Review of Systems <BERT Beckham - Last Filed: 06/29/19 16:29> Review of Systems GENERAL: See HPI HEENT: Denies sinus pain, ear pain, sore throat, difficulty swallowing, dizziness. RESPIRATORY: Denies dyspnea, cough, wheezing, hemoptysis, sputum. CARDIOVASCULAR: Denies chest pain, palpitations, orthopnea, edema, GASTROINTESTINAL: See HPI : See HPI MUSCULOSKELETAL: denies weakness, joint pain, or bony pain SKIN: Denies rash, skin lesions, or other NEUROLOGIC: Denies weakness, headache, numbness, change in speech, confusion, seizures, incoordination. PSYCHIATRIC: No concerning psychosocial issues. 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) Septic joint (Resolved) Surgical History History of Malachi fundoplication (Resolved ~2006) History of hip surgery (Resolved) History of tonsillectomy (Resolved) [place] teeth removed (Resolved) Family History Mother Chronic nephritis Grandmother History of Graves' disease Social History Smoking Status: Never smoker substance use type: marijuana Family History Mother Chronic nephritis Grandmother History of Graves' disease Social History Smoking Status: Never smoker substance use type: marijuana Exam <BERT Beckham - Last Filed: 06/29/19 16:29> Narrative Exam Narrative: GENERAL: Young female in exam room HEAD: Atraumatic. Normocephalic. No temporal or scalp tenderness. EYES: Pupils equal round and reactive. Extraocular motions intact. No scleral icterus. No injection or drainage. ENT: Nose without bleeding, purulent drainage or septal hematoma. Throat without erythema, tonsillar hypertrophy or exudate. Uvula midline. Airway patent. NECK: Trachea midline. No JVD or lymphadenopathy. Supple, nontender, no meningeal signs. CARDIOVASCULAR: Regular rate and rhythm RESPIRATORY: Clear to auscultation. Breath sounds equal bilaterally. No wheezes, rales, or rhonchi. No cough. No increased respiratory effort. No accessory muscle use. GASTROINTESTINAL: Abdomen soft. No guarding noted to palpation. Pain to palpation right lower quadrant across suprapubic area to left lower quadrant. Active bowel sounds all 4 quadrants. Uterine fundus palpable just distal to umbilicus. No guarding to exam. Nondistended abdomen. No peritoneal signs. EXTREMITIES: No clubbing, cyanosis, or edema. No joint tenderness, effusion, or edema noted. BACK: Nontender without deformity or crepitance. No flank tenderness. NEURO: AOx3. SKIN: No rash or erythema. Initial Vital Signs Initial Vital Signs: Vital Signs Temperature 98.7 F 06/29/19 11:37 Pulse Rate 100 H 06/29/19 11:37 Respiratory Rate 17 06/29/19 11:37 Blood Pressure 113/59 L 06/29/19 11:37 Pulse Oximetry 99 06/29/19 11:37 <Shyann Cazares DO - Last Filed: 06/30/19 07:21> Initial Vital Signs Initial Vital Signs: Vital Signs Temperature 98.7 F 06/29/19 11:37 Pulse Rate 100 H 06/29/19 11:37 Respiratory Rate 17 06/29/19 11:37 Blood Pressure 113/59 L 06/29/19 11:37 Pulse Oximetry 99 06/29/19 11:37 Course <KAIN Beckham-BC - Last Filed: 06/29/19 16:29> Orders Ordered: ED Orders 06/30/19 05:00 Complete Blood Count AUTO DIFF DAILY Comprehensive Metabolic Panel DAILY Acetaminophen (Tylenol) 650 mg PO Q6HR PRN PRN Reason: As Needed for Fever/Mild Pain Docusate Sodium (Colace) 250 mg PO DAILY CARLOS A Sodium Chloride (Normal Saline 0.9%) 1,000 mls @ 100 mls/hr IV CONT CARLOS A Last Admin: 06/30/19 04:34 Dose: 100 mls/hr Infusion: 06/30/19 02:18 Dose: 100 mls/hr Admin: 06/29/19 16:18 Dose: 100 mls/hr Ampicillin Sodium/Sulbactam (Sodium 3 gm/ Sodium Chloride) 100 mls @ 100 mls/hr IV Q6H CARLOS A Last Infusion: 06/30/19 06:46 Dose: 0 mls/hr Admin: 06/30/19 05:26 Dose: 100 mls/hr Infusion: 06/30/19 01:49 Dose: 0 mls/hr Admin: 06/29/19 23:28 Dose: 100 mls/hr Clindamycin Phosphate (Cleocin) 600 mg in 50 mls @ 50 mls/hr IV Q8H [facility] Last Admin: 06/30/19 06:46 Dose: 50 mls/hr Infusion: 06/29/19 23:26 Dose: 0 mls/hr Admin: 06/29/19 22:25 Dose: 50 mls/hr Ibuprofen (Advil) 600 mg PO Q6HR PRN PRN Reason: As Needed for Fever/Mild Pain Last Admin: 06/30/19 05:26 Dose: 600 mg Admin: 06/29/19 23:28 Dose: 600 mg Admin: 06/29/19 17:20 Dose: 600 mg Difluprednate 0.05% (1 Drop) 1 drop EYE-LEFT TID [facility] Last Admin: 06/29/19 21:18 Dose: 1 drop Ondansetron HCl (Zofran Odt) 4 mg PO Q8HR PRN PRN Reason: Nausea And Vomiting Ondansetron HCl (Zofran) 4 mg IV Q8HR PRN PRN Reason: Nausea And Vomiting Oxycodone HCl (Percolone) 5 mg PO Q4H PRN PRN Reason: Pain, Moderate (4-6) Last Admin: 06/30/19 05:26 Dose: 5 mg Admin: 06/30/19 01:51 Dose: 5 mg Admin: 06/29/19 21:18 Dose: 5 mg Admin: 06/29/19 17:21 Dose: 5 mg Pantoprazole Sodium (Protonix) 20 mg PO DAILY [facility] Vit/Calcium/Iron/Folic Ac (Prenatabs Rx) 1 tab PO DAILY [facility] Discontinued Medications Docusate Sodium (Colace) 100 mg PO DAILY [facility] Sodium Chloride (Normal Saline 0.9%) 1,000 mls @ 1,000 mls/hr IV BOLUS ONE Stop: 06/29/19 12:51 Last Infusion: 06/29/19 13:43 Dose: 0 mls/hr Admin: 06/29/19 12:15 Dose: 1,000 mls/hr Ampicillin Sodium/Sulbactam (Sodium 3 gm/ Sodium Chloride) 100 mls @ 100 mls/hr IV NOW ONE Stop: 06/29/19 15:22 Last Admin: 06/29/19 17:20 Dose: 100 mls/hr Clindamycin Phosphate (Cleocin) 600 mg in 50 mls @ 50 mls/hr IV Q8H [facility] Last Admin: 06/29/19 15:43 Dose: 50 mls/hr Ibuprofen (Advil) 600 mg PO Q6HR PRN PRN Reason: Pain, Mild (1-3) Oxycodone HCl (Percolone) 5 mg PO Q6HR PRN PRN Reason: Pain, Moderate (4-6) Oxycodone/Acetaminophen (Percocet 5/325) 1 tab PO NOW ONE Stop: 06/29/19 15:38 Vital Signs - 8 hr 06/30/19 03:00 Temperature 98.4 F Pulse Rate 84 Respiratory Rate 16 Blood Pressure 111/68 Pulse Oximetry 99 <Shyann Cazares, - Last Filed: 06/30/19 07:21> Orders Ordered: ED Orders 06/30/19 05:00 Complete Blood Count AUTO DIFF DAILY Comprehensive Metabolic Panel DAILY Acetaminophen (Tylenol) 650 mg PO Q6HR PRN PRN Reason: As Needed for Fever/Mild Pain Docusate Sodium (Colace) 250 mg PO DAILY [facility] Sodium Chloride (Normal Saline 0.9%) 1,000 mls @ 100 mls/hr IV CONT [facility] Last Admin: 06/30/19 04:34 Dose: 100 mls/hr Infusion: 06/30/19 02:18 Dose: 100 mls/hr Admin: 06/29/19 16:18 Dose: 100 mls/hr Ampicillin Sodium/Sulbactam (Sodium 3 gm/ Sodium Chloride) 100 mls @ 100 mls/hr IV Q6H [facility] Last Infusion: 06/30/19 06:46 Dose: 0 mls/hr Admin: 06/30/19 05:26 Dose: 100 mls/hr Infusion: 06/30/19 01:49 Dose: 0 mls/hr Admin: 06/29/19 23:28 Dose: 100 mls/hr Clindamycin Phosphate (Cleocin) 600 mg in 50 mls @ 50 mls/hr IV Q8H [facility] Last Admin: 06/30/19 06:46 Dose: 50 mls/hr Infusion: 06/29/19 23:26 Dose: 0 mls/hr Admin: 06/29/19 22:25 Dose: 50 mls/hr Ibuprofen (Advil) 600 mg PO Q6HR PRN PRN Reason: As Needed for Fever/Mild Pain Last Admin: 06/30/19 05:26 Dose: 600 mg Admin: 06/29/19 23:28 Dose: 600 mg Admin: 06/29/19 17:20 Dose: 600 mg Difluprednate 0.05% (1 Drop) 1 drop EYE-LEFT TID [facility] Last Admin: 06/29/19 21:18 Dose: 1 drop Ondansetron HCl (Zofran Odt) 4 mg PO Q8HR PRN PRN Reason: Nausea And Vomiting Ondansetron HCl (Zofran) 4 mg IV Q8HR PRN PRN Reason: Nausea And Vomiting Oxycodone HCl (Percolone) 5 mg PO Q4H PRN PRN Reason: Pain, Moderate (4-6) Last Admin: 06/30/19 05:26 Dose: 5 mg Admin: 06/30/19 01:51 Dose: 5 mg Admin: 06/29/19 21:18 Dose: 5 mg Admin: 06/29/19 17:21 Dose: 5 mg Pantoprazole Sodium (Protonix) 20 mg PO DAILY [facility] Vit/Calcium/Iron/Folic Ac (Prenatabs Rx) 1 tab PO DAILY [facility] Discontinued Medications Docusate Sodium (Colace) 100 mg PO DAILY [facility] Sodium Chloride (Normal Saline 0.9%) 1,000 mls @ 1,000 mls/hr IV BOLUS ONE Stop: 06/29/19 12:51 Last Infusion: 06/29/19 13:43 Dose: 0 mls/hr Admin: 06/29/19 12:15 Dose: 1,000 mls/hr Ampicillin Sodium/Sulbactam (Sodium 3 gm/ Sodium Chloride) 100 mls @ 100 mls/hr IV NOW ONE Stop: 06/29/19 15:22 Last Admin: 06/29/19 17:20 Dose: 100 mls/hr Clindamycin Phosphate (Cleocin) 600 mg in 50 mls @ 50 mls/hr IV Q8H [facility] Last Admin: 06/29/19 15:43 Dose: 50 mls/hr Ibuprofen (Advil) 600 mg PO Q6HR PRN PRN Reason: Pain, Mild (1-3) Oxycodone HCl (Percolone) 5 mg PO Q6HR PRN PRN Reason: Pain, Moderate (4-6) Oxycodone/Acetaminophen (Percocet 5/325) 1 tab PO NOW ONE Stop: 06/29/19 15:38 Vital Signs - 8 hr 06/30/19 03:00 Temperature 98.4 F Pulse Rate 84 Respiratory Rate 16 Blood Pressure 111/68 Pulse Oximetry 99 MDM - Fever <Shyann Frances, MEDICAL PHOTOGRAPHER- - Last Filed: 06/29/19 16:29> Lab Data Result diagrams: 06/30/19 05:00 06/30/19 05:00 Lab Results 06/29/19 06/29/19 06/29/19 Range/Units 11:25 12:18 12:18 WBC 13.2 H (4.5-11.0) X10^3/uL RBC 4.00 (4.0-5.2) X10^6/uL Hgb 11.1 L (12.0-16.0) g/dL Hct 33.6 L (36-46) % MCV 83.9 (80-100) fL MCH 27.8 (26-34) PG MCHC 33.1 (30-36) % RDW 13.7 (11.6-14.8) % Plt Count 170 (150-400) X10^3/uL Neut % (Auto) 87.8 H (50-75) % Lymph % (Auto) 4.1 L (25-40) % [place] % (Auto) 6.7 (3-14) % Eos % (Auto) 1.2 L (2-4) % Baso % (Auto) 0.2 (0-2) % Neut # (Auto) 00928 H (8265-4344) /uL Lymph # (Auto) 500 L (2249-1376) /uL [place] # (Auto) 900 (0-900) /uL Eos # (Auto) 200 (0-450) /uL Baso # (Auto) 0 (0-100) /uL Sodium 138 (137-145) mmol/L Potassium 3.5 (3.4-5.1) mmol/L Chloride 107 (98-107) mmol/L Carbon Dioxide 23 (22-32) mmol/L BUN 8 (7-17) mg/dL Creatinine 0.70 (0.52-1.04) mg/dL Estimated GFR > 60.0 (>60) mL/min BUN/Creatinine Ratio 11.4 (6-22) Glucose 73 (70-100) mg/dL Calcium 8.9 (8.4-10.2) mg/dL Total Bilirubin 1.0 (0.2-1.3) mg/dL AST 31 (14-36) IU/L ALT 13 (9-52) IU/L Alkaline Phosphatase 159 H (38-126) U/L Total Protein 6.6 (6.3-8.2) g/dL Albumin 3.4 L (3.5-5.0) g/dL Globulin 3.2 (1.7-4.1) g/dL Albumin/Globulin Ratio 1.1 (1.0-2.8) Urine Color Yellow Urine Appearance Clear Urine pH 7.0 (4.5-8.0) Ur Specific [place] <=1.005 (1.000-1.035) Urine Protein Negative (Negative) Urine Glucose (UA) Negative (Negative) g/dL Urine Ketones 2+ H (NEGATIVE) Urine Occult Blood 3+ H (Negative) Urine Nitrate Negative (Negative) Urine Bilirubin Negative (NEGATIVE) Urine Urobilinogen 1.0 (0.2) E.U./dL Ur Leukocyte Esterase 1+ H (NEGATIVE) Urine RBC 5-10/hpf H (0-5/HPF) Urine WBC 30-100/hpf H (0-5/HPF) Amorphous Sediment 1+ Urine Bacteria Moderate (10-30) H (None) Ur Culture Indicated? Specimen cultured 06/30/19 06/30/19 Range/Units 05:00 05:00 WBC 7.4 (4.5-11.0) X10^3/uL RBC 3.68 L (4.0-5.2) X10^6/uL Hgb 10.4 L (12.0-16.0) g/dL Hct 31.2 L (36-46) % MCV 84.7 (80-100) fL MCH 28.4 (26-34) PG MCHC 33.5 (30-36) % RDW 14.1 (11.6-14.8) % Plt Count 143 L (150-400) X10^3/uL Neut % (Auto) 82.5 H (50-75) % Lymph % (Auto) 7.9 L (25-40) % [place] % (Auto) 7.2 (3-14) % Eos % (Auto) 2.1 (2-4) % Baso % (Auto) 0.3 (0-2) % Neut # (Auto) 6100 (1184-5441) /uL Lymph # (Auto) 600 L (6053-8513) /uL [place] # (Auto) 500 (0-900) /uL Eos # (Auto) 200 (0-450) /uL Baso # (Auto) 0 (0-100) /uL Sodium 136 L (137-145) mmol/L Potassium 3.3 L (3.4-5.1) mmol/L Chloride 106 (98-107) mmol/L Carbon Dioxide 23 (22-32) mmol/L BUN 6 L (7-17) mg/dL Creatinine 0.80 (0.52-1.04) mg/dL Estimated GFR > 60.0 (>60) mL/min BUN/Creatinine Ratio 7.5 (6-22) Glucose 92 (70-100) mg/dL Calcium 8.4 (8.4-10.2) mg/dL Total Bilirubin 0.6 (0.2-1.3) mg/dL AST 21 (14-36) IU/L ALT 17 (9-52) IU/L Alkaline Phosphatase 126 (38-126) U/L Total Protein 5.7 L (6.3-8.2) g/dL Albumin 2.8 L (3.5-5.0) g/dL Globulin 2.9 (1.7-4.1) g/dL Albumin/Globulin Ratio 1.0 (1.0-2.8) Urine Color Urine Appearance Urine pH (4.5-8.0) Ur Specific [place] (1.000-1.035) Urine Protein (Negative) Urine Glucose (UA) (Negative) g/dL Urine Ketones (NEGATIVE) Urine Occult Blood (Negative) Urine Nitrate (Negative) Urine Bilirubin (NEGATIVE) Urine Urobilinogen (0.2) E.U./dL Ur Leukocyte Esterase (NEGATIVE) Urine RBC (0-5/HPF) Urine WBC (0-5/HPF) Amorphous Sediment Urine Bacteria (None) Ur Culture Indicated? Imaging Data Pelvic ultrasound: Radiologist's impression: [address] [address] Ultrasound Report Signed Patient: Nasim Trivedi JMR#: [id number] : 1995Acct:[id number] Age/Sex: 23 FDate of Service: 06/29/19 Loc: ED Accession Number: [id number] Procedure: US pelvic complete Ordering Provider: Shyann Frances MEDICAL PHOTOGRAPHER-BC PROCEDURE: US PELVIC COMPLETE INDICATIONS: 4 DAYS , FEVER, ABD PAIN TECHNIQUE: Real-time scanning was performed of the pelvic organs, with image documentation. Additional endovaginal scanning was necessary due to incomplete visualization of the adnexal and endometrial structures by transabdominal scanning. COMPARISON: None. FINDINGS: Transabdominal scanning: Limited scanning through the kidneys shows no hydronephrosis. No pathologic free abdominal or pelvic fluid. Endovaginal scanning: Uterus: Uterus is normal in size at 14.6 x 8.2 x 9.9 cm. The endometrium is ill defined and boundaries are not well seen. Multiple echogenic non-shadowing punctate foci are present and there is increase vascularity within the central endometrial complex. Ovaries: Normal vertebral artery measure 3.7 x 3.1 x 3.0 cm on the right and 5.0 x 3.3 x 3.0 cm on the left. IMPRESSION: 1. Ill-defined appearance of the endometrial complex with increased vascularity and non-shadowing punctate echogenic foci which could represent endometrial gas. Retained products of conception cannot be excluded. Dictated by: Ken Mann [facility] Interpreted: Dia Holm MD on 06/29/2019 at 13:14 Approved by: Dia Holm M.D. on 06/29/2019 at 14:27 [facility] Narrative Medical decision making narrative: The patient is a 23-year-old female who is 4 days who presents with a chief complaint of fever and abdominal pain. Her urinalysis is concerning for infection. She does have some leukocytosis WBC elevation to 13.2. Her ultrasound is unable to rule out retained products of conception, thus I spoke with Dr. Reza who consulted to Dr. Pena. As per Dr. Reza the patient was admitted to the hospital with diagnosis of endometritis. She was given Percocet for pain control in the emergency department. As per my discussions with the admitting physicians, she was given Unasyn as well as clindamycin in the emergency department. I discussed at length with the patient the reason for admission, and she stated understanding. The patient was admitted to the center to help facilitate breast-feeding etc. Patient has no questions or concerns regarding admission. <Shyann Cazares, DO - Last Filed: 06/30/19 07:21> Lab Data Lab Results 06/29/19 06/29/19 06/29/19 Range/Units 11:25 12:18 12:18 WBC 13.2 H (4.5-11.0) X10^3/uL RBC 4.00 (4.0-5.2) X10^6/uL Hgb 11.1 L (12.0-16.0) g/dL Hct 33.6 L (36-46) % MCV 83.9 (80-100) fL MCH 27.8 (26-34) PG MCHC 33.1 (30-36) % RDW 13.7 (11.6-14.8) % Plt Count 170 (150-400) X10^3/uL Neut % (Auto) 87.8 H (50-75) % Lymph % (Auto) 4.1 L (25-40) % [place] % (Auto) 6.7 (3-14) % Eos % (Auto) 1.2 L (2-4) % Baso % (Auto) 0.2 (0-2) % Neut # (Auto) 29633 H (1616-8016) /uL Lymph # (Auto) 500 L (4384-2360) /uL [place] # (Auto) 900 (0-900) /uL Eos # (Auto) 200 (0-450) /uL Baso # (Auto) 0 (0-100) /uL Sodium 138 (137-145) mmol/L Potassium 3.5 (3.4-5.1) mmol/L Chloride 107 (98-107) mmol/L Carbon Dioxide 23 (22-32) mmol/L BUN 8 (7-17) mg/dL Creatinine 0.70 (0.52-1.04) mg/dL Estimated GFR > 60.0 (>60) mL/min BUN/Creatinine Ratio 11.4 (6-22) Glucose 73 (70-100) mg/dL Calcium 8.9 (8.4-10.2) mg/dL Total Bilirubin 1.0 (0.2-1.3) mg/dL AST 31 (14-36) IU/L ALT 13 (9-52) IU/L Alkaline Phosphatase 159 H (38-126) U/L Total Protein 6.6 (6.3-8.2) g/dL Albumin 3.4 L (3.5-5.0) g/dL Globulin 3.2 (1.7-4.1) g/dL Albumin/Globulin Ratio 1.1 (1.0-2.8) Urine Color Yellow Urine Appearance Clear Urine pH 7.0 (4.5-8.0) Ur Specific [place] <=1.005 (1.000-1.035) Urine Protein Negative (Negative) Urine Glucose (UA) Negative (Negative) g/dL Urine Ketones 2+ H (NEGATIVE) Urine Occult Blood 3+ H (Negative) Urine Nitrate Negative (Negative) Urine Bilirubin Negative (NEGATIVE) Urine Urobilinogen 1.0 (0.2) E.U./dL Ur Leukocyte Esterase 1+ H (NEGATIVE) Urine RBC 5-10/hpf H (0-5/HPF) Urine WBC 30-100/hpf H (0-5/HPF) Amorphous Sediment 1+ Urine Bacteria Moderate (10-30) H (None) Ur Culture Indicated? Specimen cultured 06/30/19 06/30/19 Range/Units 05:00 05:00 WBC 7.4 (4.5-11.0) X10^3/uL RBC 3.68 L (4.0-5.2) X10^6/uL Hgb 10.4 L (12.0-16.0) g/dL Hct 31.2 L (36-46) % MCV 84.7 (80-100) fL MCH 28.4 (26-34) PG MCHC 33.5 (30-36) % RDW 14.1 (11.6-14.8) % Plt Count 143 L (150-400) X10^3/uL Neut % (Auto) 82.5 H (50-75) % Lymph % (Auto) 7.9 L (25-40) % [place] % (Auto) 7.2 (3-14) % Eos % (Auto) 2.1 (2-4) % Baso % (Auto) 0.3 (0-2) % Neut # (Auto) 6100 (0030-6707) /uL Lymph # (Auto) 600 L (4962-3408) /uL [place] # (Auto) 500 (0-900) /uL Eos # (Auto) 200 (0-450) /uL Baso # (Auto) 0 (0-100) /uL Sodium 136 L (137-145) mmol/L Potassium 3.3 L (3.4-5.1) mmol/L Chloride 106 (98-107) mmol/L Carbon Dioxide 23 (22-32) mmol/L BUN 6 L (7-17) mg/dL Creatinine 0.80 (0.52-1.04) mg/dL Estimated GFR > 60.0 (>60) mL/min BUN/Creatinine Ratio 7.5 (6-22) Glucose 92 (70-100) mg/dL Calcium 8.4 (8.4-10.2) mg/dL Total Bilirubin 0.6 (0.2-1.3) mg/dL AST 21 (14-36) IU/L ALT 17 (9-52) IU/L Alkaline Phosphatase 126 (38-126) U/L Total Protein 5.7 L (6.3-8.2) g/dL Albumin 2.8 L (3.5-5.0) g/dL Globulin 2.9 (1.7-4.1) g/dL Albumin/Globulin Ratio 1.0 (1.0-2.8) Urine Color Urine Appearance Urine pH (4.5-8.0) Ur Specific [place] (1.000-1.035) Urine Protein (Negative) Urine Glucose (UA) (Negative) g/dL Urine Ketones (NEGATIVE) Urine Occult Blood (Negative) Urine Nitrate (Negative) Urine Bilirubin (NEGATIVE) Urine Urobilinogen (0.2) E.U./dL Ur Leukocyte Esterase (NEGATIVE) Urine RBC (0-5/HPF) Urine WBC (0-5/HPF) Amorphous Sediment Urine Bacteria (None) Ur Culture Indicated? Discharge Plan Departure Patient Disposition: Admitted As Inpatient Clinical Impression: Endometritis Discharge Date/Time: 06/29/19 15:48 Interventions: ED Discharge Assessment Last Done: 06/29/19 15:47 Admit Date/Time: 06/29/19 15:22 Admit Provider: Maribell Reza <Shyann Cazares DO - Last Filed: 06/30/19 07:21> Cosign ED Attending Cosignature Attestation: I was immediately available in the department for consultation, case was discussed plan for admission for endometritis. This documentation has been reviewed and I agree with assessment and plan. Supervised by Shyann Cazares DO
[2019-06-29 11:45] LABS: Appearance Urine UA CLEAR; Bilirubin Urine UA NEGATIVE (NEGATIVE); Color Urine UA YELLOW; Glucose Urine UA NEGATIVE (Negative); Ketones Urine UA 2+ (NEGATIVE); Leukocyte Esterase Urine UA 1+ (NEGATIVE); Nitrite Urine UA NEGATIVE (Negative); Occult Blood Urine UA 3+ (Negative); Protein Urine UA NEGATIVE (Negative); Specific Gravity Urine UA <=1.005 (1.000-1.035)
--- NOTE | 2019-06-29 11:51 | DI.US.S_ITS ---
PROCEDURE: US PELVIC COMPLETE INDICATIONS: 4 DAYS , FEVER, ABD PAIN TECHNIQUE: Real-time scanning was performed of the pelvic organs, with image documentation. Additional endovaginal scanning was necessary due to incomplete visualization of the adnexal and endometrial structures by transabdominal scanning. COMPARISON: None. FINDINGS: Transabdominal scanning: Limited scanning through the kidneys shows no hydronephrosis. No pathologic free abdominal or pelvic fluid. Endovaginal scanning: Uterus: Uterus is normal in size at 14.6 x 8.2 x 9.9 cm. The endometrium is ill defined and boundaries are not well seen. Multiple echogenic non-shadowing punctate foci are present and there is increase vascularity within the central endometrial complex. Ovaries: Normal vertebral artery measure 3.7 x 3.1 x 3.0 cm on the right and 5.0 x 3.3 x 3.0 cm on the left. IMPRESSION: 1. Ill-defined appearance of the endometrial complex with increased vascularity and non-shadowing punctate echogenic foci which could represent endometrial gas. Retained products of conception cannot be excluded. Dictated by: Ken WILSON Interpreted: Dia Holm MD on 06/29/2019 at 13:14 Approved by: Dia Holm M.D. on 06/29/2019 at 14:27
[2019-06-29 11:56] LABS: Amorphous Sediment Urine 1+; Bacteria Urine Moderate (10-30); RBC Urine 5-10/HPF (0-5/HPF); WBC Urine 30-100/HPF (0-5/HPF)
[2019-06-29 11:57] LABS: Culture Indicated Urine Specimen Cultured
--- NOTE | 2019-06-29 12:08 | ED_ITS ---
HPI - Fever <BERT Beckham - Last Filed: 06/29/19 16:29> General Chief Complaint: Fever Stated Complaint: 4 days /fever/RLQ pain x2 days Time Seen by Provider: 06/29/19 11:42 Source: patient Mode of arrival: ambulatory Limitations: no limitations History of Present Illness HPI Narrative: Female status post arm complicated spontaneous vaginal delivery on 06/26/19 at 40 weeks gestation who presents with a chief complaint of fever . She is a nonsmoker presents with her boyfriend. She is 4 days and yesterday started having some right lower quadrant pain. She states is not radiating, states it stays in her right lower quadrant. She complains of slight dysuria, no urgency or frequency. She denies any nausea vomiting or diarrhea. She states that she took some oxycodone for the pain yesterday, it did not touch it. She states she is eating drinking avoiding well. She denies any constipation. She denies any breast pain or symptoms of m astitis. Related Data Home Medications Medication Instructions Recorded Confirmed 1 tab PO DAILY 11/30/18 06/29/19 vitamin,calcium,[id number] acid tablet difluprednate [Durezol] 1 unit EYE-LEFT TID 06/29/19 06/29/19 Previous Rx's Medication Instructions Recorded omeprazole 20 mg capsule,delayed 20 mg PO DAILY #90 cap 06/08/19 release docusate sodium 250 mg PO DAILY #30 cap 06/27/19 ibuprofen 600 mg PO Q6HR PRN #30 tab 06/27/19 oxycodone 5 mg PO Q4H PRN #10 tab 06/27/19 Allergies Allergy/AdvReac Type Severity Reaction Status Date / Time vancomycin [VANCOMYCIN] Allergy Mild NECK Verified 06/29/19 20:46 STIFFNESS Review of Systems <BERT Beckham - Last Filed: 06/29/19 16:29> Review of Systems GENERAL: See HPI HEENT: Denies sinus pain, ear pain, sore throat, difficulty swallowing, dizziness. RESPIRATORY: Denies dyspnea, cough, wheezing, hemoptysis, sputum. CARDIOVASCULAR: Denies chest pain, palpitations, orthopnea, edema, GASTROINTESTINAL: See HPI : See HPI MUSCULOSKELETAL: denies weakness, joint pain, or bony pain SKIN: Denies rash, skin lesions, or other NEUROLOGIC: Denies weakness, headache, numbness, change in speech, confusion, seizures, incoordination. PSYCHIATRIC: No concerning psychosocial issues. 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) Septic joint (Resolved) Surgical History History of Malachi fundoplication (Resolved ~2006) History of hip surgery (Resolved) History of tonsillectomy (Resolved) [place] teeth removed (Resolved) Family History Mother Chronic nephritis Grandmother History of Graves' disease Social History Smoking Status: Never smoker substance use type: marijuana Family History Mother Chronic nephritis Grandmother History of Graves' disease Social History Smoking Status: Never smoker substance use type: marijuana Exam <BERT Beckham - Last Filed: 06/29/19 16:29> Narrative Exam Narrative: GENERAL: Young female in exam room HEAD: Atraumatic. Normocephalic. No temporal or scalp tenderness. EYES: Pupils equal round and reactive. Extraocular motions intact. No scleral icterus. No injection or drainage. ENT: Nose without bleeding, purulent drainage or septal hematoma. Throat without erythema, tonsillar hypertrophy or exudate. Uvula midline. Airway patent. NECK: Trachea midline. No JVD or lymphadenopathy. Supple, nontender, no meningeal signs. CARDIOVASCULAR: Regular rate and rhythm RESPIRATORY: Clear to auscultation. Breath sounds equal bilaterally. No wheezes, rales, or rhonchi. No cough. No increased respiratory effort. No accessory muscle use. GASTROINTESTINAL: Abdomen soft. No guarding noted to palpation. Pain to palpation right lower quadrant across suprapubic area to left lower quadrant. Active bowel sounds all 4 quadrants. Uterine fundus palpable just distal to umbilicus. No guarding to exam. Nondistended abdomen. No peritoneal signs. EXTREMITIES: No clubbing, cyanosis, or edema. No joint tenderness, effusion, or edema noted. BACK: Nontender without deformity or crepitance. No flank tenderness. NEURO: AOx3. SKIN: No rash or erythema. Initial Vital Signs Initial Vital Signs: Vital Signs Temperature 98.7 F 06/29/19 11:37 Pulse Rate 100 H 06/29/19 11:37 Respiratory Rate 17 06/29/19 11:37 Blood Pressure 113/59 L 06/29/19 11:37 Pulse Oximetry 99 06/29/19 11:37 <Shyann Cazares DO - Last Filed: 06/30/19 07:21> Initial Vital Signs Initial Vital Signs: Vital Signs Temperature 98.7 F 06/29/19 11:37 Pulse Rate 100 H 06/29/19 11:37 Respiratory Rate 17 06/29/19 11:37 Blood Pressure 113/59 L 06/29/19 11:37 Pulse Oximetry 99 06/29/19 11:37 Course <KAIN Beckham-BC - Last Filed: 06/29/19 16:29> Orders Ordered: ED Orders 06/30/19 05:00 Complete Blood Count AUTO DIFF DAILY Comprehensive Metabolic Panel DAILY Acetaminophen (Tylenol) 650 mg PO Q6HR PRN PRN Reason: As Needed for Fever/Mild Pain Docusate Sodium (Colace) 250 mg PO DAILY CARLOS A Sodium Chloride (Normal Saline 0.9%) 1,000 mls @ 100 mls/hr IV CONT CARLOS A Last Admin: 06/30/19 04:34 Dose: 100 mls/hr Infusion: 06/30/19 02:18 Dose: 100 mls/hr Admin: 06/29/19 16:18 Dose: 100 mls/hr Ampicillin Sodium/Sulbactam (Sodium 3 gm/ Sodium Chloride) 100 mls @ 100 mls/hr IV Q6H CARLOS A Last Infusion: 06/30/19 06:46 Dose: 0 mls/hr Admin: 06/30/19 05:26 Dose: 100 mls/hr Infusion: 06/30/19 01:49 Dose: 0 mls/hr Admin: 06/29/19 23:28 Dose: 100 mls/hr Clindamycin Phosphate (Cleocin) 600 mg in 50 mls @ 50 mls/hr IV Q8H [facility] Last Admin: 06/30/19 06:46 Dose: 50 mls/hr Infusion: 06/29/19 23:26 Dose: 0 mls/hr Admin: 06/29/19 22:25 Dose: 50 mls/hr Ibuprofen (Advil) 600 mg PO Q6HR PRN PRN Reason: As Needed for Fever/Mild Pain Last Admin: 06/30/19 05:26 Dose: 600 mg Admin: 06/29/19 23:28 Dose: 600 mg Admin: 06/29/19 17:20 Dose: 600 mg Difluprednate 0.05% (1 Drop) 1 drop EYE-LEFT TID [facility] Last Admin: 06/29/19 21:18 Dose: 1 drop Ondansetron HCl (Zofran Odt) 4 mg PO Q8HR PRN PRN Reason: Nausea And Vomiting Ondansetron HCl (Zofran) 4 mg IV Q8HR PRN PRN Reason: Nausea And Vomiting Oxycodone HCl (Percolone) 5 mg PO Q4H PRN PRN Reason: Pain, Moderate (4-6) Last Admin: 06/30/19 05:26 Dose: 5 mg Admin: 06/30/19 01:51 Dose: 5 mg Admin: 06/29/19 21:18 Dose: 5 mg Admin: 06/29/19 17:21 Dose: 5 mg Pantoprazole Sodium (Protonix) 20 mg PO DAILY [facility] Vit/Calcium/Iron/Folic Ac (Prenatabs Rx) 1 tab PO DAILY [facility] Discontinued Medications Docusate Sodium (Colace) 100 mg PO DAILY [facility] Sodium Chloride (Normal Saline 0.9%) 1,000 mls @ 1,000 mls/hr IV BOLUS ONE Stop: 06/29/19 12:51 Last Infusion: 06/29/19 13:43 Dose: 0 mls/hr Admin: 06/29/19 12:15 Dose: 1,000 mls/hr Ampicillin Sodium/Sulbactam (Sodium 3 gm/ Sodium Chloride) 100 mls @ 100 mls/hr IV NOW ONE Stop: 06/29/19 15:22 Last Admin: 06/29/19 17:20 Dose: 100 mls/hr Clindamycin Phosphate (Cleocin) 600 mg in 50 mls @ 50 mls/hr IV Q8H [facility] Last Admin: 06/29/19 15:43 Dose: 50 mls/hr Ibuprofen (Advil) 600 mg PO Q6HR PRN PRN Reason: Pain, Mild (1-3) Oxycodone HCl (Percolone) 5 mg PO Q6HR PRN PRN Reason: Pain, Moderate (4-6) Oxycodone/Acetaminophen (Percocet 5/325) 1 tab PO NOW ONE Stop: 06/29/19 15:38 Vital Signs - 8 hr 06/30/19 03:00 Temperature 98.4 F Pulse Rate 84 Respiratory Rate 16 Blood Pressure 111/68 Pulse Oximetry 99 <Shyann Cazares, - Last Filed: 06/30/19 07:21> Orders Ordered: ED Orders 06/30/19 05:00 Complete Blood Count AUTO DIFF DAILY Comprehensive Metabolic Panel DAILY Acetaminophen (Tylenol) 650 mg PO Q6HR PRN PRN Reason: As Needed for Fever/Mild Pain Docusate Sodium (Colace) 250 mg PO DAILY [facility] Sodium Chloride (Normal Saline 0.9%) 1,000 mls @ 100 mls/hr IV CONT [facility] Last Admin: 06/30/19 04:34 Dose: 100 mls/hr Infusion: 06/30/19 02:18 Dose: 100 mls/hr Admin: 06/29/19 16:18 Dose: 100 mls/hr Ampicillin Sodium/Sulbactam (Sodium 3 gm/ Sodium Chloride) 100 mls @ 100 mls/hr IV Q6H [facility] Last Infusion: 06/30/19 06:46 Dose: 0 mls/hr Admin: 06/30/19 05:26 Dose: 100 mls/hr Infusion: 06/30/19 01:49 Dose: 0 mls/hr Admin: 06/29/19 23:28 Dose: 100 mls/hr Clindamycin Phosphate (Cleocin) 600 mg in 50 mls @ 50 mls/hr IV Q8H [facility] Last Admin: 06/30/19 06:46 Dose: 50 mls/hr Infusion: 06/29/19 23:26 Dose: 0 mls/hr Admin: 06/29/19 22:25 Dose: 50 mls/hr Ibuprofen (Advil) 600 mg PO Q6HR PRN PRN Reason: As Needed for Fever/Mild Pain Last Admin: 06/30/19 05:26 Dose: 600 mg Admin: 06/29/19 23:28 Dose: 600 mg Admin: 06/29/19 17:20 Dose: 600 mg Difluprednate 0.05% (1 Drop) 1 drop EYE-LEFT TID [facility] Last Admin: 06/29/19 21:18 Dose: 1 drop Ondansetron HCl (Zofran Odt) 4 mg PO Q8HR PRN PRN Reason: Nausea And Vomiting Ondansetron HCl (Zofran) 4 mg IV Q8HR PRN PRN Reason: Nausea And Vomiting Oxycodone HCl (Percolone) 5 mg PO Q4H PRN PRN Reason: Pain, Moderate (4-6) Last Admin: 06/30/19 05:26 Dose: 5 mg Admin: 06/30/19 01:51 Dose: 5 mg Admin: 06/29/19 21:18 Dose: 5 mg Admin: 06/29/19 17:21 Dose: 5 mg Pantoprazole Sodium (Protonix) 20 mg PO DAILY [facility] Vit/Calcium/Iron/Folic Ac (Prenatabs Rx) 1 tab PO DAILY [facility] Discontinued Medications Docusate Sodium (Colace) 100 mg PO DAILY [facility] Sodium Chloride (Normal Saline 0.9%) 1,000 mls @ 1,000 mls/hr IV BOLUS ONE Stop: 06/29/19 12:51 Last Infusion: 06/29/19 13:43 Dose: 0 mls/hr Admin: 06/29/19 12:15 Dose: 1,000 mls/hr Ampicillin Sodium/Sulbactam (Sodium 3 gm/ Sodium Chloride) 100 mls @ 100 mls/hr IV NOW ONE Stop: 06/29/19 15:22 Last Admin: 06/29/19 17:20 Dose: 100 mls/hr Clindamycin Phosphate (Cleocin) 600 mg in 50 mls @ 50 mls/hr IV Q8H [facility] Last Admin: 06/29/19 15:43 Dose: 50 mls/hr Ibuprofen (Advil) 600 mg PO Q6HR PRN PRN Reason: Pain, Mild (1-3) Oxycodone HCl (Percolone) 5 mg PO Q6HR PRN PRN Reason: Pain, Moderate (4-6) Oxycodone/Acetaminophen (Percocet 5/325) 1 tab PO NOW ONE Stop: 06/29/19 15:38 Vital Signs - 8 hr 06/30/19 03:00 Temperature 98.4 F Pulse Rate 84 Respiratory Rate 16 Blood Pressure 111/68 Pulse Oximetry 99 MDM - Fever <KAIN Beckham- - Last Filed: 06/29/19 16:29> Lab Data Result diagrams: 06/30/19 05:00 06/30/19 05:00 Lab Results 06/29/19 06/29/19 06/29/19 Range/Units 11:25 12:18 12:18 WBC 13.2 H (4.5-11.0) X10^3/uL RBC 4.00 (4.0-5.2) X10^6/uL Hgb 11.1 L (12.0-16.0) g/dL Hct 33.6 L (36-46) % MCV 83.9 (80-100) fL MCH 27.8 (26-34) PG MCHC 33.1 (30-36) % RDW 13.7 (11.6-14.8) % Plt Count 170 (150-400) X10^3/uL Neut % (Auto) 87.8 H (50-75) % Lymph % (Auto) 4.1 L (25-40) % [place] % (Auto) 6.7 (3-14) % Eos % (Auto) 1.2 L (2-4) % Baso % (Auto) 0.2 (0-2) % Neut # (Auto) 75562 H (7865-7013) /uL Lymph # (Auto) 500 L (4202-1113) /uL [place] # (Auto) 900 (0-900) /uL Eos # (Auto) 200 (0-450) /uL Baso # (Auto) 0 (0-100) /uL Sodium 138 (137-145) mmol/L Potassium 3.5 (3.4-5.1) mmol/L Chloride 107 (98-107) mmol/L Carbon Dioxide 23 (22-32) mmol/L BUN 8 (7-17) mg/dL Creatinine 0.70 (0.52-1.04) mg/dL Estimated GFR > 60.0 (>60) mL/min BUN/Creatinine Ratio 11.4 (6-22) Glucose 73 (70-100) mg/dL Calcium 8.9 (8.4-10.2) mg/dL Total Bilirubin 1.0 (0.2-1.3) mg/dL AST 31 (14-36) IU/L ALT 13 (9-52) IU/L Alkaline Phosphatase 159 H (38-126) U/L Total Protein 6.6 (6.3-8.2) g/dL Albumin 3.4 L (3.5-5.0) g/dL Globulin 3.2 (1.7-4.1) g/dL Albumin/Globulin Ratio 1.1 (1.0-2.8) Urine Color Yellow Urine Appearance Clear Urine pH 7.0 (4.5-8.0) Ur Specific [place] <=1.005 (1.000-1.035) Urine Protein Negative (Negative) Urine Glucose (UA) Negative (Negative) g/dL Urine Ketones 2+ H (NEGATIVE) Urine Occult Blood 3+ H (Negative) Urine Nitrate Negative (Negative) Urine Bilirubin Negative (NEGATIVE) Urine Urobilinogen 1.0 (0.2) E.U./dL Ur Leukocyte Esterase 1+ H (NEGATIVE) Urine RBC 5-10/hpf H (0-5/HPF) Urine WBC 30-100/hpf H (0-5/HPF) Amorphous Sediment 1+ Urine Bacteria Moderate (10-30) H (None) Ur Culture Indicated? Specimen cultured 06/30/19 06/30/19 Range/Units 05:00 05:00 WBC 7.4 (4.5-11.0) X10^3/uL RBC 3.68 L (4.0-5.2) X10^6/uL Hgb 10.4 L (12.0-16.0) g/dL Hct 31.2 L (36-46) % MCV 84.7 (80-100) fL MCH 28.4 (26-34) PG MCHC 33.5 (30-36) % RDW 14.1 (11.6-14.8) % Plt Count 143 L (150-400) X10^3/uL Neut % (Auto) 82.5 H (50-75) % Lymph % (Auto) 7.9 L (25-40) % [place] % (Auto) 7.2 (3-14) % Eos % (Auto) 2.1 (2-4) % Baso % (Auto) 0.3 (0-2) % Neut # (Auto) 6100 (8020-6104) /uL Lymph # (Auto) 600 L (3174-9305) /uL [place] # (Auto) 500 (0-900) /uL Eos # (Auto) 200 (0-450) /uL Baso # (Auto) 0 (0-100) /uL Sodium 136 L (137-145) mmol/L Potassium 3.3 L (3.4-5.1) mmol/L Chloride 106 (98-107) mmol/L Carbon Dioxide 23 (22-32) mmol/L BUN 6 L (7-17) mg/dL Creatinine 0.80 (0.52-1.04) mg/dL Estimated GFR > 60.0 (>60) mL/min BUN/Creatinine Ratio 7.5 (6-22) Glucose 92 (70-100) mg/dL Calcium 8.4 (8.4-10.2) mg/dL Total Bilirubin 0.6 (0.2-1.3) mg/dL AST 21 (14-36) IU/L ALT 17 (9-52) IU/L Alkaline Phosphatase 126 (38-126) U/L Total Protein 5.7 L (6.3-8.2) g/dL Albumin 2.8 L (3.5-5.0) g/dL Globulin 2.9 (1.7-4.1) g/dL Albumin/Globulin Ratio 1.0 (1.0-2.8) Urine Color Urine Appearance Urine pH (4.5-8.0) Ur Specific [place] (1.000-1.035) Urine Protein (Negative) Urine Glucose (UA) (Negative) g/dL Urine Ketones (NEGATIVE) Urine Occult Blood (Negative) Urine Nitrate (Negative) Urine Bilirubin (NEGATIVE) Urine Urobilinogen (0.2) E.U./dL Ur Leukocyte Esterase (NEGATIVE) Urine RBC (0-5/HPF) Urine WBC (0-5/HPF) Amorphous Sediment Urine Bacteria (None) Ur Culture Indicated? Imaging Data Pelvic ultrasound: Radiologist's impression: [address] [address] Ultrasound Report Signed Patient: Nasim Trivedi JMR#: [id number] : 1995Acct:[id number] Age/Sex: 23 / FDate of Service: 06/29/19 Loc: ED Accession Number: [id number] Procedure: US pelvic complete Ordering Provider: Shyann Frances [employer] PROCEDURE: US PELVIC COMPLETE INDICATIONS: 4 DAYS , FEVER, ABD PAIN TECHNIQUE: Real-time scanning was performed of the pelvic organs, with image documentation. Additional endovaginal scanning was necessary due to incomplete visualization of the adnexal and endometrial structures by transabdominal scanning. COMPARISON: None. FINDINGS: Transabdominal scanning: Limited scanning through the kidneys shows no hydron ephrosis. No pathologic free abdominal or pelvic fluid. Endovaginal scanning: Uterus: Uterus is normal in size at 14.6 x 8.2 x 9.9 cm. The endometrium is ill defined and boundaries are not well seen. Multiple echogenic non-shadowing punctate foci are present and there is increase vascularity within the central endometrial complex. Ovaries: Normal vertebral artery measure 3.7 x 3.1 x 3.0 cm on the right and 5.0 x 3.3 x 3.0 cm on the left. IMPRESSION: 1. Ill-defined appearance of the endometrial complex with increased vascularity and non-shadowing punctate echogenic foci which could represent endometrial gas. Retained products of conception cannot be excluded. Dictated by: Ken Mann [facility] Interpreted: Dia Holm MD on 06/29/2019 at 13:14 Approved by: Dia Holm M.D. on 06/29/2019 at 14:27 [facility] Narrative Medical decision making narrative: The patient is a 23-year-old female who is 4 days who presents with a chief complaint of fever and abdominal pain. Her urinalysis is concerning for infection. She does have some leukocytosis WBC elevation to 13.2. Her ultrasound is unable to rule out retained products of conception, thus I spoke with Dr. Reza who consulted to Dr. Pena. As per Dr. Reza the patient was admitted to the hospital with diagnosis of en dometritis. She was given Percocet for pain control in the emergency department. As per my discussions with the admitting physicians, she was given Unasyn as well as clindamycin in the emergency department. I discussed at length with the patient the reason for admission, and she stated understanding. The patient was admitted to the center to help facilitate breast-feeding etc. Patient has no questions or concerns regarding admission. <Shyann Gaxiolapallavi, DO - Last Filed: 06/30/19 07:21> Lab Data Lab Results 06/29/19 06/29/19 06/29/19 Range/Units 11:25 12:18 12:18 WBC 13.2 H (4.5-11.0) X10^3/uL RBC 4.00 (4.0-5.2) X10^6/uL Hgb 11.1 L (12.0-16.0) g/dL Hct 33.6 L (36-46) % MCV 83.9 (80-100) fL MCH 27.8 (26-34) PG MCHC 33.1 (30-36) % RDW 13.7 (11.6-14.8) % Plt Count 170 (150-400) X10^3/uL Neut % (Auto) 87.8 H (50-75) % Lymph % (Auto) 4.1 L (25-40) % [place] % (Auto) 6.7 (3-14) % Eos % (Auto) 1.2 L (2-4) % Baso % (Auto) 0.2 (0-2) % Neut # (Auto) 65559 H (2231-7272) /uL Lymph # (Auto) 500 L (0579-5901) /uL [place] # (Auto) 900 (0-900) /uL Eos # (Auto) 200 (0-450) /uL Baso # (Auto) 0 (0-100) /uL Sodium 138 (137-145) mmol/L Potassium 3.5 (3.4-5.1) mmol/L Chloride 107 (98-107) mmol/L Carbon Dioxide 23 (22-32) mmol/L BUN 8 (7-17) mg/dL Creatinine 0.70 (0.52-1.04) mg/dL Estimated GFR > 60.0 (>60) mL/min BUN/Creatinine Ratio 11.4 (6-22) Glucose 73 (70-100) mg/dL Calcium 8.9 (8.4-10.2) mg/dL Total Bilirubin 1.0 (0.2-1.3) mg/dL AST 31 (14-36) IU/L ALT 13 (9-52) IU/L Alkaline Phosphatase 159 H (38-126) U/L Total Protein 6.6 (6.3-8.2) g/dL Albumin 3.4 L (3.5-5.0) g/dL Globulin 3.2 (1.7-4.1) g/dL Albumin/Globulin Ratio 1.1 (1.0-2.8) Urine Color Yellow Urine Appearance Clear Urine pH 7.0 (4.5-8.0) Ur Specific [place] <=1.005 (1.000-1.035) Urine Protein Negative (Negative) Urine Glucose (UA) Negative (Negative) g/dL Urine Ketones 2+ H (NEGATIVE) Urine Occult Blood 3+ H (Negative) Urine Nitrate Negative (Negative) Urine Bilirubin Negative (NEGATIVE) Urine Urobilinogen 1.0 (0.2) E.U./dL Ur Leukocyte Esterase 1+ H (NEGATIVE) Urine RBC 5-10/hpf H (0-5/HPF) Urine WBC 30-100/hpf H (0-5/HPF) Amorphous Sediment 1+ Urine Bacteria Moderate (10-30) H (None) Ur Culture Indicated? Specimen cultured 06/30/19 06/30/19 Range/Units 05:00 05:00 WBC 7.4 (4.5-11.0) X10^3/uL RBC 3.68 L (4.0-5.2) X10^6/uL Hgb 10.4 L (12.0-16.0) g/dL Hct 31.2 L (36-46) % MCV 84.7 (80-100) fL MCH 28.4 (26-34) PG MCHC 33.5 (30-36) % RDW 14.1 (11.6-14.8) % Plt Count 143 L (150-400) X10^3/uL Neut % (Auto) 82.5 H (50-75) % Lymph % (Auto) 7.9 L (25-40) % [place] % (Auto) 7.2 (3-14) % Eos % (Auto) 2.1 (2-4) % Baso % (Auto) 0.3 (0-2) % Neut # (Auto) 6100 (8907-6402) /uL Lymph # (Auto) 600 L (1034-7124) /uL [place] # (Auto) 500 (0-900) /uL Eos # (Auto) 200 (0-450) /uL Baso # (Auto) 0 (0-100) /uL Sodium 136 L (137-145) mmol/L Potassium 3.3 L (3.4-5.1) mmol/L Chloride 106 (98-107) mmol/L Carbon Dioxide 23 (22-32) mmol/L BUN 6 L (7-17) mg/dL Creatinine 0.80 (0.52-1.04) mg/dL Estimated GFR > 60.0 (>60) mL/min BUN/Creatinine Ratio 7.5 (6-22) Glucose 92 (70-100) mg/dL Calcium 8.4 (8.4-10.2) mg/dL Total Bilirubin 0.6 (0.2-1.3) mg/dL AST 21 (14-36) IU/L ALT 17 (9-52) IU/L Alkaline Phosphatase 126 (38-126) U/L Total Protein 5.7 L (6.3-8.2) g/dL Albumin 2.8 L (3.5-5.0) g/dL Globulin 2.9 (1.7-4.1) g/dL Albumin/Globulin Ratio 1.0 (1.0-2.8) Urine Color Urine Appearance Urine pH (4.5-8.0) Ur Specific [place] (1.000-1.035) Urine Protein (Negative) Urine Glucose (UA) (Negative) g/dL Urine Ketones (NEGATIVE) Urine Occult Blood (Negative) Urine Nitrate (Negative) Urine Bilirubin (NEGATIVE) Urine Urobilinogen (0.2) E.U./dL Ur Leukocyte Esterase (NEGATIVE) Urine RBC (0-5/HPF) Urine WBC (0-5/HPF) Amorphous Sediment Urine Bacteria (None) Ur Culture Indicated? Discharge Plan Departure Patient Disposition: Admitted As Inpatient Clinical Impression: Endometritis Discharge Date/Time: 06/29/19 15:48 Interventions: ED Discharge Assessment Last Done: 06/29/19 15:47 Admit Date/Time: 06/29/19 15:22 Admit Provider: Maribell Reza <Shyann Cazares DO - Last Filed: 06/30/19 07:21> Cosign ED Attending Cosignature Attestation: I was immediately available in the department for consultation, case was discussed plan for admission for endometritis. This documentation has been reviewed and I agree with assessment and plan. Supervised by Shyann Cazares DO
[2019-06-29] MEDS: SODIUM CHLORIDE 0.9% 1,000 ML 1000 ML IV (12:15)
[2019-06-29 12:31] LABS: Add Manual Diff / Slide Review NO; Basophils Absolute Auto 0 /uL (0-100); Basophils Percent Auto 0.2 % (0-2); Eosinophils Absolute Auto 200 /uL (0-450); Eosinophils Percent Auto 1.2 % (2-4); Hematocrit 33.6 % (36-46); Hemoglobin 11.1 g/dL (12.0-16.0); Lymphocytes Absolute Auto 500 /uL (1100-4500); Lymphocytes Percent Auto 4.1 % (25-40); Mean Corpuscular HGB Conc 33.1 % (30-36); Mean Corpuscular Hemoglobin 27.8 PG (26-34); Mean Corpuscular Volume 83.9 fL (80-100); Monocytes Absolute Auto 900 /uL (0-900); Monocytes Percent Auto 6.7 % (3-14); Neutrophils Absolute Auto 11600 /uL (1500-7000); Neutrophils Percent Auto 87.8 % (50-75); Platelet Count 170 X10^3/uL (150-400); Red Cell Distribution Width 13.7 % (11.6-14.8); White Blood Cell Count 13.2 X10^3/uL (4.5-11.0)
[2019-06-29 12:36] LABS: HEMOLYSIS 23 (0-50)
[2019-06-29 12:51] LABS: Alanine Aminotransferase 13 IU/L (9-52); Albumin 3.4 g/dL (3.5-5.0); Albumin Globulin Ratio 1.1 (1.0-2.8); Alkaline Phosphatase 159 U/L (38-126); Aspartate Aminotransferase 31 IU/L (14-36); BUN Creatinine Ratio 11.4 (6-22); Blood Urea Nitrogen 8 mg/dL (7-17); Calcium 8.9 mg/dL (8.4-10.2); Carbon Dioxide 23 mmol/L (22-32); Chloride 107 mmol/L (98-107); Estimated Glomerular Filt Rate > 60.0 mL/min (>60); Globulin 3.2 g/dL (1.7-4.1); Glucose 73 mg/dL (70-100); Potassium 3.5 mmol/L (3.4-5.1); Sodium 138 mmol/L (137-145); Total Protein 6.6 g/dL (6.3-8.2)
[2019-06-29] MEDS: CLINDAMYCIN 600 MG/50 ML PIGGYBACK 50 MG IV ×2 (15:43→22:25)
--- NOTE | 2019-06-29 15:49 | P.HP_ITS ---
History of Present Illness Date Patient Seen: 06/29/19 Time Patient Seen: 16:46 Chief complaint: 4 days /fever/RLQ pain x2 days Narrative: Patient is a 23-year-old 4 days after uncomplicated vaginal delivery. Active labor was less than 3 hours and rupture of membranes occurred shortly before delivery. She did not have fevers intrapartum and was GBS negative. She did sustain second-degree vaginal and perineal lacerations which were repaired. Patient complains of abdominal pain since yesterday and fevers that began overnight. The pain is in her lower abdomen as well as the right lower quadrant and very tender. Mother states she was so painful last night that she could not stand up straight. She tried ibuprofen and oxycodone with little improvement in pain. 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 She has some irritation with urination but no pain or burning. She has not yet had a bowel movement since delivery. Denies nausea or vomiting. For tear feels fine, no more painful than she would expect. Has been managing with ice packs. is going well. She feels her milk has come in but denies significant breast tenderness or warmth. Infant is doing very well. In the emergency department [place] blood cell [place] [address] and ultrasound was concerning for possible retained products of conception. She was admitted for IV antibiotics and further evaluation regarding possible retained products of conception. Patient History Medical History Anxiety (Chronic) GERD (gastroesophageal reflux disease) (Chronic) 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) Septic joint (Resolved) Surgical History History of Mal[place] fundoplication (Resolved ~2006) History of hip surgery (Resolved) History of tonsillectomy (Resolved) [place] teeth removed (Resolved) Family History Mother Chronic nephritis Grandmother History of Graves' disease Social History Smoking Status: Never smoker substance use type: marijuana Family & Social History Family History Mother Chronic nephritis Grandmother History of Graves' disease Safety & Behavioral: Feels Safe in Current Yes Environment Been Physically Hurt or No Threatened By a Person Tobacco & Substance use: Smoking Status Never smoker alcohol intake frequency holiday/special occasion Substance Use Type marijuana Meds Home Medications Medication Instructions Recorded Confirmed Type 1 tab PO DAILY 11/30/18 06/29/19 History vitamin,calcium,psuwbqdw-cwpa-nxasn acid tablet omeprazole 20 mg capsule,delayed 20 mg PO DAILY #90 cap 06/08/19 06/29/19 Rx release docusate sodium 250 mg PO DAILY #30 cap 06/27/19 06/29/19 Rx ibuprofen 600 mg PO Q6HR PRN #30 tab 06/27/19 06/29/19 Rx oxycodone 5 mg PO Q4H PRN #10 tab 06/27/19 06/29/19 Rx difluprednate [Durezol] 06/29/19 History prednisolone acetate 06/29/19 History Allergies Allergy/AdvReac Type Severity Reaction Status Date / Time vancomycin [VANCOMYCIN] Allergy Mild NECK Verified 06/23/19 10:53 STIFFNESS Review of Systems Constitutional Constitutional: Reports fever(s) and Reports malaise Respiratory Respiratory: Denies cough Gastrointestinal Gastrointestinal: Reports abdominal pain, Reports constipation, Denies nausea and Denies vomiting Genitourinary Genitourinary: Reports vaginal odor and Denies urinary urgency Exam Vital Signs (past 8 hours): - 06/29/19 11:37 06/29/19 14:39 06/29/19 15:47 Temperature 98.7 F 98.9 F Pulse Rate 100 H 93 H 110 H Respiratory Rate 17 15 18 Blood Pressure 113/59 L 123/61 Blood Pressure [Right Arm] 118/66 Pulse Oximetry 99 100 100 Oxygen Delivery Method Room Air Narrative Exam Narrative: General: Awake and alert, patient appears uncomfortable with rigors HEENT: NCAT, EOMI, moist oral mucosa CV: Regular rate and rhythm, no murmurs, rubs or gallops Lungs: CTAB, no wheezes, rales, or rhonchi Abdomen: Bowel tones active x4, tender to palpation over uterus and right lower quadrant, uterus 2 cm below umbilicus. Genitourinary: Vaginal and perineal lacerations appear to be healing normally. Foul smelling lochia noted. Extremities: Warm, no edema Objective Imaging Pelvic US: Radiologist's impression: IMPRESSION: 1. Ill-defined appearance of the endometrial complex with increased vascularity and non-shadowing punctate echogenic foci which could represent endometrial gas. Retained products of conception cannot be excluded. Dictated by: Ken Mnan RRA Interpreted: Dia Holm MD on 06/29/2019 at 13:14 Approved by: Dia Holm M.D. on 06/29/2019 at 14:27 Labs Result Diagrams: 06/29/19 12:18 06/29/19 12:18 Labs: Laboratory Results - last 24 hr 06/29/19 06/29/19 06/29/19 11:25 12:18 12:18 WBC 13.2 H RBC 4.00 Hgb 11.1 L Hct 33.6 L MCV 83.9 MCH 27.8 MCHC 33.1 RDW 13.7 Plt Count 170 Neut % (Auto) 87.8 H Lymph % (Auto) 4.1 L [place] % (Auto) 6.7 Eos % (Auto) 1.2 L Baso % (Auto) 0.2 Neut # (Auto) 45393 H Lymph # (Auto) 500 L [place] # (Auto) 900 Eos # (Auto) 200 Baso # (Auto) 0 Sodium 138 Potassium 3.5 Chloride 107 Carbon Dioxide 23 BUN 8 Creatinine 0.70 Estimated GFR > 60.0 BUN/Creatinine Ratio 11.4 Glucose 73 Calcium 8.9 Total Bilirubin 1.0 AST 31 ALT 13 Alkaline Phosphatase 159 H Total Protein 6.6 Albumin 3.4 L Globulin 3.2 Albumin/Globulin Ratio 1.1 Urine Color Yellow Urine Appearance Clear Urine pH 7.0 Ur Specific [place] <=1.005 Urine Protein Negative Urine Glucose (UA) Negative Urine Ketones 2+ H Urine Occult Blood 3+ H Urine Nitrate Negative Urine Bilirubin Negative Urine Urobilinogen 1.0 Ur Leukocyte Esterase 1+ H Urine RBC 5-10/hpf H Urine WBC 30-100/hpf H Amorphous Sediment 1+ Urine Bacteria Moderate (10-30) H Ur Culture Indicated? Specimen cultured Assessment & Plan (1) endometritis: Current visit: Yes Status: Acute Assessment & Plan narrative: 23-year-old 4 days after uncomplicated spontaneous vaginal delivery on 06/26/19 now with fever, uterine tenderness and malodorous lochia consistent with endometritis. She was GBS negative and ruptured for a very brief amount of time prior to delivery. No fevers during labor. Placenta delivered spontaneously and appeared intact. Reviewed pelvic ultrasound done in the ER with Dr. Pena due to concern for possible retained products of conception however Dr. Pena is less concerned after reviewing the images herself. Urine was concerning for infection however was not a catheter specimen. Plan - Unasyn and clindamycin - Consider repeat imaging after 24-36 hours of antibiotics to reassess for retained products - Repeat CBC and BMP in the morning - Follow-up urine culture - Ibuprofen, acetaminophen and oxycodone as needed for pain - General diet, no plan for D and C at this time Disposition: Anticipate 48 hours in the hospital while awaiting clinical improvement and determining whether D&C is needed.
[2019-06-29] MEDS: SODIUM CHLORIDE 0.9% 1,000 ML 100 ML IV (16:18)
[2019-06-29] MEDS: IBUPROFEN 600 MG TABLET PO ×2 (17:20→23:28)
[2019-06-29] MEDS: AMPICILLIN/SULBACTAM 3 GM 3 GM in SODIUM CHLORIDE 0.9% 100 ML IV ×2 (17:20→23:28)
[2019-06-29] MEDS: OXYCODONE IR 5 MG TABLET PO ×2 (17:21→21:18)
[2019-06-29] MEDS: DIFLUPREDNATE 0.05% 1 EACH EYE-LEFT (21:18)
[2019-06-30] VITALS (7 sets, daily range): BP systolic 110–125; BP diastolic 64–82; PULSE 72–102; RESP 16–18; TEMP 36.5–37.9; O2SAT 98–99
[2019-06-30] MEDS: OXYCODONE IR 5 MG TABLET PO ×6 (01:51→22:26)
[2019-06-30] MEDS: SODIUM CHLORIDE 0.9% 1,000 ML 100 ML IV ×2 (04:34→22:28)
[2019-06-30 05:13] LABS: Add Manual Diff / Slide Review NO; Basophils Absolute Auto 0 /uL (0-100); Basophils Percent Auto 0.3 % (0-2); Eosinophils Absolute Auto 200 /uL (0-450); Eosinophils Percent Auto 2.1 % (2-4); Hematocrit 31.2 % (36-46); Hemoglobin 10.4 g/dL (12.0-16.0); Lymphocytes Absolute Auto 600 /uL (1100-4500); Lymphocytes Percent Auto 7.9 % (25-40); Mean Corpuscular HGB Conc 33.5 % (30-36); Mean Corpuscular Hemoglobin 28.4 PG (26-34); Mean Corpuscular Volume 84.7 fL (80-100); Monocytes Absolute Auto 500 /uL (0-900); Monocytes Percent Auto 7.2 % (3-14); Neutrophils Absolute Auto 6100 /uL (1500-7000); Neutrophils Percent Auto 82.5 % (50-75); Platelet Count 143 X10^3/uL (150-400); Red Blood Cell Count 3.68 X10^6/uL (4.0-5.2); Red Cell Distribution Width 14.1 % (11.6-14.8); White Blood Cell Count 7.4 X10^3/uL (4.5-11.0)
[2019-06-30 05:24] LABS: Alanine Aminotransferase 17 IU/L (9-52); Albumin 2.8 g/dL (3.5-5.0); Alkaline Phosphatase 126 U/L (38-126); Aspartate Aminotransferase 21 IU/L (14-36); BUN Creatinine Ratio 7.5 (6-22); Bilirubin Total 0.6 mg/dL (0.2-1.3); Blood Urea Nitrogen 6 mg/dL (7-17); Calcium 8.4 mg/dL (8.4-10.2); Carbon Dioxide 23 mmol/L (22-32); Chloride 106 mmol/L (98-107); Estimated Glomerular Filt Rate > 60.0 mL/min (>60); Globulin 2.9 g/dL (1.7-4.1); Glucose 92 mg/dL (70-100); HEMOLYSIS < 15 (0-50); Potassium 3.3 mmol/L (3.4-5.1); Sodium 136 mmol/L (137-145); Total Protein 5.7 g/dL (6.3-8.2)
[2019-06-30] MEDS: IBUPROFEN 600 MG TABLET PO ×3 (05:26→18:10)
[2019-06-30] MEDS: AMPICILLIN/SULBACTAM 3 GM 3 GM in SODIUM CHLORIDE 0.9% 100 ML IV ×3 (05:26→18:30)
[2019-06-30] MEDS: CLINDAMYCIN 600 MG/50 ML PIGGYBACK 50 MG IV ×3 (06:46→22:28)
--- NOTE | 2019-06-30 07:59 | P.PN_ITS ---
Subjective Date Patient Seen: 06/30/19 Time Patient Seen: 07:34 Interval history: No fevers overnight. Denies chills or shakes today. Still has little appetite. Lower abdominal pain is better at rest but still quite painful when she gets up and walks. Using ibuprofen and oxycodone regularly. She is passing gas but has not had a BM since before delivery. continues to go well and she feels like her milk is in. Baby doing well. Exam Vital Signs (past 8 hours): - 06/30/19 03:00 Temperature 98.4 F Pulse Rate 84 Respiratory Rate 16 Blood Pressure 111/68 Pulse Oximetry 99 Oxygen Delivery Method Room Air Narrative Exam Narrative: General: Awake and alert, NAD HEENT: NCAT, EOMI, moist oral mucosa CV: Regular rate and rhythm, no murmurs, rubs or gallops Lungs: CTAB, no wheezes, rales, or rhonchi Abdomen: Bowel tones active x4, mild tenderness in RLQ without guarding. Uterus 2 cm below umbilicus. Extremities: Warm, no edema Objective Labs Result Diagrams: 06/30/19 05:00 06/30/19 05:00 Labs: Laboratory Results - last 24 hr 06/29/19 06/29/19 06/29/19 11:25 12:18 12:18 WBC 13.2 H RBC 4.00 Hgb 11.1 L Hct 33.6 L MCV 83.9 MCH 27.8 MCHC 33.1 RDW 13.7 Plt Count 170 Neut % (Auto) 87.8 H Lymph % (Auto) 4.1 L [place] % (Auto) 6.7 Eos % (Auto) 1.2 L Baso % (Auto) 0.2 Neut # (Auto) 45520 H Lymph # (Auto) 500 L [place] # (Auto) 900 Eos # (Auto) 200 Baso # (Auto) 0 Sodium 138 Potassium 3.5 Chloride 107 Carbon Dioxide 23 BUN 8 Creatinine 0.70 Estimated GFR > 60.0 BUN/Creatinine Ratio 11.4 Glucose 73 Calcium 8.9 Total Bilirubin 1.0 AST 31 ALT 13 Alkaline Phosphatase 159 H Total Protein 6.6 Albumin 3.4 L Globulin 3.2 Albumin/Globulin Ratio 1.1 Urine Color Yellow Urine Appearance Clear Urine pH 7.0 Ur Specific [place] <=1.005 Urine Protein Negative Urine Glucose (UA) Negative Urine Ketones 2+ H Urine Occult Blood 3+ H Urine Nitrate Negative Urine Bilirubin Negative Urine Urobilinogen 1.0 Ur Leukocyte Esterase 1+ H Urine RBC 5-10/hpf H Urine WBC 30-100/hpf H Amorphous Sediment 1+ Urine Bacteria Moderate (10-30) H Ur Culture Indicated? Specimen cultured 06/30/19 06/30/19 05:00 05:00 WBC 7.4 RBC 3.68 L Hgb 10.4 L Hct 31.2 L MCV 84.7 MCH 28.4 MCHC 33.5 RDW 14.1 Plt Count 143 L Neut % (Auto) 82.5 H Lymph % (Auto) 7.9 L [place] % (Auto) 7.2 Eos % (Auto) 2.1 Baso % (Auto) 0.3 Neut # (Auto) 6100 Lymph # (Auto) 600 L [place] # (Auto) 500 Eos # (Auto) 200 Baso # (Auto) 0 Sodium 136 L Potassium 3.3 L Chloride 106 Carbon Dioxide 23 BUN 6 L Creatinine 0.80 Estimated GFR > 60.0 BUN/Creatinine Ratio 7.5 Glucose 92 Calcium 8.4 Total Bilirubin 0.6 AST 21 ALT 17 Alkaline Phosphatase 126 Total Protein 5.7 L Albumin 2.8 L Globulin 2.9 Albumin/Globulin Ratio 1.0 Urine Color Urine Appearance Urine pH Ur Specific [place] Urine Protein Urine Glucose (UA) Urine Ketones Urine Occult Blood Urine Nitrate Urine Bilirubin Urine Urobilinogen Ur Leukocyte Esterase Urine RBC Urine WBC Amorphous Sediment Urine Bacteria Ur Culture Indicated? Assessment & Plan (1) endometritis: Current visit: Yes Status: Acute Assessment & Plan narrative: Clinically improving with decreased pain and absence of fevers. Continue Unasyn and clindamycin Repeat US tomorrow to assess for retained products Potassium slightly low, replace today and recheck tomorrow Increase docusate to BID and add senna Continue ibuprofen, acetaminophen and oxycodone as needed Hopefully she can discharge home tomorrow if her US is reassuring.
[2019-06-30] MEDS: PRENATAL VIT,CALC/IRON/FOLIC 1 TABLET 1 TAB PO (09:01)
[2019-06-30] MEDS: DOCUSATE 250 MG CAPSULE PO ×2 (09:01→21:13)
[2019-06-30] MEDS: POTASSIUM CHLORIDE 20 MEQ TAB 40 MEQ PO (09:02)
[2019-06-30] MEDS: DIFLUPREDNATE 0.05% 1 EACH EYE-LEFT ×3 (09:04→21:13)
[2019-06-30] MEDS: SENNOSIDES 8.6 MG TABLET PO (10:26)
--- NOTE | 2019-06-30 10:46 | CM.SWNOTE ---
Met with patient today to ask about any discharge needs or concerns she might have. Pt. explained that she lives with her mom who is an L&D nurse here at and so feels well supported. I pointed out that sometimes patients have concerns/needs that they need to discuss outside of the family [place] and she said she fully understands that could be the case, but assured me that she was absolutely fine with her plan to go home with the baby upon discharge. She was very appreciative of the offer for any assistance and joyfully showed this RN her new baby who was sleeping peacefully and without distress.
--- NOTE | 2019-06-30 10:51 | CM.IDA ---
See social work note in EMR
[2019-06-30] MEDS: PANTOPRAZOLE 20 MG TABLET PO (18:31)
[2019-06-30] MEDS: ACETAMINOPHEN 325 MG TABLET 650 MG PO (20:14)
[2019-07-01] MEDS: IBUPROFEN 600 MG TABLET PO ×2 (00:13→06:24)
[2019-07-01] MEDS: AMPICILLIN/SULBACTAM 3 GM 3 GM in SODIUM CHLORIDE 0.9% 100 ML IV (00:14)
[2019-07-01 02:31] VITALS: TEMP 36.3
[2019-07-01] MEDS: OXYCODONE IR 5 MG TABLET PO ×2 (02:31→06:24)
[2019-07-01 02:35] VITALS: BP 118/79; PULSE 87; RESP 16; TEMP 36.4
[2019-07-01] MEDS: CLINDAMYCIN 600 MG/50 ML PIGGYBACK 50 MG IV (06:24)
[2019-07-01 06:46] LABS: Add Manual Diff / Slide Review NO; Basophils Absolute Auto 0 /uL (0-100); Basophils Percent Auto 0.4 % (0-2); Eosinophils Absolute Auto 200 /uL (0-450); Eosinophils Percent Auto 3.5 % (2-4); Hematocrit 29.8 % (36-46); Hemoglobin 10.1 g/dL (12.0-16.0); Lymphocytes Absolute Auto 1000 /uL (1100-4500); Lymphocytes Percent Auto 20.9 % (25-40); Mean Corpuscular HGB Conc 34.1 % (30-36); Mean Corpuscular Hemoglobin 28.7 PG (26-34); Mean Corpuscular Volume 84.2 fL (80-100); Monocytes Absolute Auto 500 /uL (0-900); Monocytes Percent Auto 9.5 % (3-14); Neutrophils Absolute Auto 3300 /uL (1500-7000); Neutrophils Percent Auto 65.7 % (50-75); Platelet Count 152 X10^3/uL (150-400); Red Blood Cell Count 3.54 X10^6/uL (4.0-5.2); Red Cell Distribution Width 13.8 % (11.6-14.8)
[2019-07-01 07:11] LABS: BUN Creatinine Ratio 4.4 (6-22); Blood Urea Nitrogen 4 mg/dL (7-17); Calcium 8.1 mg/dL (8.4-10.2); Carbon Dioxide 23 mmol/L (22-32); Chloride 111 mmol/L (98-107); Estimated Glomerular Filt Rate > 60.0 mL/min (>60); Glucose 81 mg/dL (70-100); HEMOLYSIS < 15 (0-50); Potassium 3.6 mmol/L (3.4-5.1); Sodium 138 mmol/L (137-145)
[2019-07-01] MEDS: AMPICILLIN/SULBACTAM 3 GM 3 GM in SODIUM CHLORIDE 0.9% 100 ML 600 ML IV (07:33)
[2019-07-01 07:40] VITALS: BP 141/88; RESP 16; TEMP 36.3; O2SAT 100
--- NOTE | 2019-07-01 08:00 | DI.US.S_ITS ---
PROCEDURE: US PELVIC COMPLETE INDICATIONS: ENDOMETRITIS, QUESTIONABLE RPOC TECHNIQUE: Real-time scanning was performed of the pelvic organs, with image documentation. Additional endovaginal scanning was necessary due to incomplete visualization of the adnexal and endometrial structures by transabdominal scanning. COMPARISON: None. FINDINGS: Transabdominal scanning: Limited scanning through the kidneys shows no hydronephrosis. No pathologic free abdominal or pelvic fluid. Endovaginal scanning: Uterus: Uterus is enlarged and measures 16.5 x 7.5 x 11.8 cm, compatible with the patient's recent history. No focal myometrial lesions are identified. The endometrium is moderately thickened and measures up to 3.5 cm in maximal thickness. The endometrium is heterogeneous and demonstrates increased vascularity. No definable lesions or significant fluid is seen within the endometrium. Ovaries: The right ovary measures 4.6 x 2.7 x 3.0 cm. The left ovary measures 4.1 x 2.5 x 1.9 cm. Both ovaries are mildly prominent in size. No cystic or solid masses evident. IMPRESSION: Thickened heterogeneous endometrium is compatible with the patient's history of endometritis. The possibility of retained products of conception cannot be excluded. Dictated by: iMke Winters M.D. on 07/01/2019 at 9:15 Approved by: Mike Winters M.D. on 07/01/2019 at 9:17
--- NOTE | 2019-07-01 08:19 | PC.NURSE ---
0740 [place] Ampicillin as ordered, IV patent,VSS, Alert and oriented Patient's mom at bedside
--- NOTE | 2019-07-01 09:13 | PM.DS.1 ---
History of Present Illness Date Patient Seen: 07/01/19 Time Patient Seen: 09:13 Chief complaint: 4 days /fever/RLQ pain x2 days Narrative: The patient is a 23-year-old white female one para one five days status post spontaneous vaginal delivery. The patient presented with lower abdominal discomfort and pain and a low-grade fever. She had an extremely tender uterus. A presumptive diagnosis of endometritis was made[place] [address]. The patient was placed on ampicillin/sulbactam at a dose of 3 g every 6 hours her temperature evidently fell and she has been afebrile since yesterday evening. Her repeat white count was initially 7400 and is 5000 today. Discharge Providers Date of admission: 06/29/19 15:22 Discharge Date: 07/01/19 Primary care physician: Maribell Reza DO Discharge provider: Chalo Brenner MD Summary Discharge Diagnosis: endometritis Hospital Course: Patient is a 23-year-old one para one five days post spontaneous vaginal delivery with endometritis. Patient was treated with ampicillin/sulbactam and her temperature rapidly fell her white count fell nicely to 5000. Her symptoms abated. She did have ultrasound showing questionable material and uterus. I reviewed both of these and material simply decidual. There are no retained products of conception. Patient is not bleeding could her temperature is normal. White count is only 5000. Her uterus is much less tender Status at Discharge Cognitive/behavioral status at discharge: oriented Functional status at discharge: independent ambulation Overall status at discharge: patient is progressing back to baseline Time Spent with Patient Less than 30 minutes Exam Vital Signs (past 8 hours): - 07/01/19 02:31 07/01/19 02:35 07/01/19 07:40 Temperature 97.4 F L 97.5 F L 97.4 F L Pulse Rate 87 Respiratory Rate 16 16 Blood Pressure 118/79 141/88 H Pulse Oximetry 100 Oxygen Delivery Method Room Air Narrative Exam Narrative: Fundus is U minus three and is only mildly tender Excellent bowel sounds Lochia scant Objective Labs Result Diagrams: 07/01/19 06:29 07/01/19 06:29 Labs: Laboratory Results - last 24 hr 07/01/19 07/01/19 06:29 06:29 WBC 5.0 RBC 3.54 L Hgb 10.1 L Hct 29.8 L MCV 84.2 MCH 28.7 MCHC 34.1 RDW 13.8 Plt Count 152 Neut % (Auto) 65.7 Lymph % (Auto) 20.9 L [place] % (Auto) 9.5 Eos % (Auto) 3.5 Baso % (Auto) 0.4 Neut # (Auto) 3300 Lymph # (Auto) 1000 L [place] # (Auto) 500 Eos # (Auto) 200 Baso # (Auto) 0 Sodium 138 Potassium 3.6 Chloride 111 H Carbon Dioxide 23 BUN 4 L Creatinine 0.90 Estimated GFR > 60.0 BUN/Creatinine Ratio 4.4 L Glucose 81 Calcium 8.1 L Discharge Plan Discharge Plan Discharge Problem: Endometritis Patient Disposition: Home Discharge Med Rec/Prescriptions Prescriptions: New ibuprofen 600 mg Tablet 600 mg PO Q6HR PRN (Reason: As Needed For Fever/Mild Pain) Qty: 20 RF: 0 hydrocodone-acetaminophen [Vicodin ES] 7.5-300 mg tablet 1 tab PO Q4-6H PRN (Reason: pain) Qty: 14 RF: 0 amoxicillin-pot clavulanate [Augmentin] 875-125 mg tablet 1 tab PO BID Qty: 4 RF: 0 Continued omeprazole 20 mg capsule,delayed release(DR/EC) 20 mg PO DAILY Qty: 90 RF: 3 prenat.vits,jean claude,jvy-xevs-fslyl tablet 1 tab PO DAILY RF: 0 ibuprofen 600 mg Tablet 600 mg PO Q6HR PRN (Reason: Pain, Mild (1-3)) Qty: 30 RF: 0 docusate sodium 250 mg Capsule 250 mg PO DAILY Qty: 30 RF: 0 difluprednate 0.05 % drops 1 unit EYE-LEFT TID RF: 0 Discontinued oxycodone 5 mg Tablet 5 mg PO Q4H PRN (Reason: Pain, Moderate (4-6)) Qty: 10 RF: 0 Follow up/Referrals: Maribell Reza DO [Primary Care Provider] - 07/03/19 Provider Discharge Instructions Diet: Diet as Tolerated Activity: Up ad govind Skin/Wound/Dressing Care Report to your healthcare provider any signs of infection, such as:: chills, fever, increased pain, unusual drainage and unusual redness Dressing: None Discharge Data Primary Care Provider: Maribell Reza Attending Provider: Maribell Reza Admit Date/Time: 06/29/19 15:22
--- NOTE | 2019-07-01 09:17 | PC.NURSE ---
0900 here to see patient, veiwed results of U/S and labs, not placenta tissue retained, D'cd IV. No bowelmovemet yet,gave her Yanira. Orders recieved to Discharge home with meds.
== END 2019-07-01 10:05 | disposition home or self-care (01) | DRG 776 ==
LOC: ED 15:22 → AC 15:25 → LABOR 16:10
PROVIDERS: Emergency Medicine; Admitting Provider Family Medicine; Emergency Provider Nurse Practitioner Family; PCP Family Medicine; Visit Provider Family Medicine
DX: O86.12 Endometritis following delivery (principal)
CPT/HCPCS: 36415; 36591; 36592; 76856; 80048; 80053; 81001; 85025; 87077; 87086; 96374; 99222; 99232; 99238; 99283; 99284; J0295

== ENCOUNTER → 2019-07-17 12:10 | Outpatient (CLI) | payer OTHER, MEDICAID, SELFPAY ==
[2019-07-17 12:29] LABS: Add Manual Diff / Slide Review NO; Basophils Absolute Auto 100 /uL (0-100); Basophils Percent Auto 1.3 % (0-2); Eosinophils Absolute Auto 100 /uL (0-450); Eosinophils Percent Auto 2.1 % (2-4); Hemoglobin 11.9 g/dL (12.0-16.0); Lymphocytes Absolute Auto 2400 /uL (1100-4500); Lymphocytes Percent Auto 44.4 % (25-40); Mean Corpuscular HGB Conc 32.1 % (30-36); Mean Corpuscular Hemoglobin 27.1 PG (26-34); Mean Corpuscular Volume 84.6 fL (80-100); Monocytes Absolute Auto 300 /uL (0-900); Neutrophils Absolute Auto 2500 /uL (1500-7000); Neutrophils Percent Auto 46.2 % (50-75); Platelet Count 372 X10^3/uL (150-400); Red Blood Cell Count 4.38 X10^6/uL (4.0-5.2); White Blood Cell Count 5.4 X10^3/uL (4.5-11.0)
[2019-07-17 13:03] LABS: Alanine Aminotransferase 24 IU/L (9-52); Albumin 3.7 g/dL (3.5-5.0); Albumin Globulin Ratio 1.3 (1.0-2.8); Alkaline Phosphatase 83 U/L (38-126); Aspartate Aminotransferase 27 IU/L (14-36); Bilirubin Total 0.7 mg/dL (0.2-1.3); Blood Urea Nitrogen 11 mg/dL (7-17); Calcium 9.4 mg/dL (8.4-10.2); Carbon Dioxide 28 mmol/L (22-32); Chloride 105 mmol/L (98-107); Estimated Glomerular Filt Rate > 60.0 mL/min (>60); Globulin 2.8 g/dL (1.7-4.1); Glucose 83 mg/dL (70-100); HEMOLYSIS < 15 (0-50); Potassium 3.7 mmol/L (3.4-5.1); Sodium 141 mmol/L (137-145); Total Protein 6.5 g/dL (6.3-8.2)
[2019-07-17 17:21] LABS: Creatinine Urine Random 191.3 mg/dL
[2019-07-17 17:26] LABS: Microalbumi Creatinin Ratio Ur 38.1 ug/mg CR (<30); Microalbumin Urine Random 7.3 mg/dL (0-1.6)
== END ==
PROVIDERS: PCP Family Medicine; Visit Provider Family Medicine
DX: O90.89 Other complications of the puerperium, not elsewhere classified (principal); R51 Headache
CPT/HCPCS: 36415; 80053; 82043; 82570; 85025

== ENCOUNTER → 2020-04-05 15:37 | Outpatient (CLI) | payer OTHER, MEDICAID, SELFPAY ==
[2020-04-05 16:13] LABS: Add Manual Diff / Slide Review NO; Basophils Absolute Auto 0 /uL (0-100); Basophils Percent Auto 0.5 % (0-2); Eosinophils Absolute Auto 100 /uL (0-450); Eosinophils Percent Auto 2.1 % (2-4); Hematocrit 35.1 % (36-46); Hemoglobin 11.6 g/dL (12.0-16.0); Lymphocytes Absolute Auto 2100 /uL (1100-4500); Mean Corpuscular HGB Conc 33.1 % (30-36); Mean Corpuscular Hemoglobin 27.5 PG (26-34); Mean Corpuscular Volume 83.1 fL (80-100); Monocytes Absolute Auto 500 /uL (0-900); Monocytes Percent Auto 8.8 % (3-14); Neutrophils Absolute Auto 2800 /uL (1500-7000); Neutrophils Percent Auto 50.6 % (50-75); Platelet Count 197 X10^3/uL (150-400); Red Blood Cell Count 4.23 X10^6/uL (4.0-5.2); Red Cell Distribution Width 14.6 % (11.6-14.8); White Blood Cell Count 5.4 X10^3/uL (4.5-11.0)
[2020-04-05 16:27] LABS: Alanine Aminotransferase 11 IU/L (<35); Albumin 4.1 g/dL (3.5-5.0); Albumin Globulin Ratio 1.5 (1.0-2.8); Alkaline Phosphatase 66 U/L (38-126); Aspartate Aminotransferase 22 IU/L (14-36); BUN Creatinine Ratio 13.6 (6-22); Bilirubin Total 0.5 mg/dL (0.2-1.3); Blood Urea Nitrogen 15 mg/dL (7-17); Calcium 8.9 mg/dL (8.4-10.2); Carbon Dioxide 26 mmol/L (22-32); Chloride 107 mmol/L (98-107); Estimated Glomerular Filt Rate > 60.0 mL/min (>60); Globulin 2.8 g/dL (1.7-4.1); Glucose 71 mg/dL (70-100); HEMOLYSIS < 15 (0-50); Potassium 4.1 mmol/L (3.4-5.1); Sodium 139 mmol/L (137-145); Total Protein 6.9 g/dL (6.3-8.2)
[2020-04-05 16:53] LABS: C-Reactive Protein Quant < 0.5 mg/dL (<1.0)
[2020-04-05 17:17] LABS: TSH w/ Reflex to FT4 0.59 uIU/mL (0.47-4.68)
== END ==
PROVIDERS: PCP Family Medicine; Referring Provider Family Medicine; Visit Provider Family Medicine
DX: M08.00 Unspecified juvenile rheumatoid arthritis of unspecified site (principal); R53.83 Other fatigue; R61 Generalized hyperhidrosis
CPT/HCPCS: 36415; 80053; 84443; 85025; 86140

== ENCOUNTER 2020-04-25 13:44 | Emergency (ER) | payer OTHER, MEDICAID, SELFPAY ==
[2020-04-25 14:07] VITALS: BP 123/75; PULSE 71; RESP 16; TEMP 37.1; O2SAT 99
[2020-04-25 14:24] LABS: Add Manual Diff / Slide Review NO; Basophils Absolute Auto 100 /uL (0-100); Basophils Percent Auto 1.1 % (0-2); Eosinophils Absolute Auto 100 /uL (0-450); Eosinophils Percent Auto 2.2 % (2-4); Hematocrit 35.3 % (36-46); Hemoglobin 11.7 g/dL (12.0-16.0); Lymphocytes Absolute Auto 2100 /uL (1100-4500); Lymphocytes Percent Auto 39.5 % (25-40); Mean Corpuscular HGB Conc 33.2 % (30-36); Mean Corpuscular Hemoglobin 27.3 PG (26-34); Mean Corpuscular Volume 82.4 fL (80-100); Monocytes Absolute Auto 400 /uL (0-900); Monocytes Percent Auto 8.2 % (3-14); Neutrophils Absolute Auto 2600 /uL (1500-7000); Platelet Count 193 X10^3/uL (150-400); Red Blood Cell Count 4.29 X10^6/uL (4.0-5.2); Red Cell Distribution Width 14.7 % (11.6-14.8); White Blood Cell Count 5.4 X10^3/uL (4.5-11.0)
[2020-04-25 14:30] LABS: Prothrombin Time 11.9 SECONDS (10.1-12.7)
[2020-04-25 14:33] LABS: PTT Partial Thromboplastin Tim 31 SECONDS (26.4-36.2)
[2020-04-25 14:35] LABS: Alanine Aminotransferase 11 IU/L (<35); Albumin 4.2 g/dL (3.5-5.0); Albumin Globulin Ratio 1.4 (1.0-2.8); Alkaline Phosphatase 76 U/L (38-126); Aspartate Aminotransferase 24 IU/L (14-36); BUN Creatinine Ratio 13.9 (6-22); Bilirubin Total 0.5 mg/dL (0.2-1.3); Blood Urea Nitrogen 14 mg/dL (7-17); Calcium 9.1 mg/dL (8.4-10.2); Carbon Dioxide 25 mmol/L (22-32); Chloride 107 mmol/L (98-107); Estimated Glomerular Filt Rate > 60.0 mL/min (>60); Glucose 84 mg/dL (70-100); HEMOLYSIS < 15 (0-50); Lipase 149 U/L (23-300); Sodium 136 mmol/L (137-145); Total Protein 7.2 g/dL (6.3-8.2)
[2020-04-25 14:36] LABS: Amylase 108 U/L (30-110); Monotest Negative (Negative)
[2020-04-25 15:29] LABS: Pregnancy Test Serum,Qual Negative (Negative)
--- NOTE | 2020-04-25 15:30 | DI.RAD.S_ITS ---
PROCEDURE: XR ACUTE ABDOMEN SERIES INDICATIONS: abd pain TECHNIQUE: One view chest and two views of the abdomen were acquired. COMPARISON: None. FINDINGS: Surgical changes and devices: None. Chest: Lungs are clear. Heart size is normal. No pleural effusions. No pneumoperitoneum. Abdomen: Bowel gas pattern is normal. No suspicious calcifications. Visualized solid organ contours appear normal. Bones: No suspicious bony lesions. IMPRESSION: Normal for age, source of current abdominal pain symptoms is not seen. Dictated by: Ross Her M.D. on 04/25/2020 at 15:14 Approved by: Ross Her M.D. on 04/25/2020 at 15:14
[2020-04-25] MEDS: SODIUM CHLORIDE 0.9% 1,000 ML 1000 ML IV (15:33)
[2020-04-25] MEDS: ONDANSETRON 4 MG/2 ML INJ IV (15:33)
[2020-04-25] MEDS: KETOROLAC 60 MG/2 ML VIAL 30 MG IV (15:45)
[2020-04-25 16:20] VITALS: BP 104/50; PULSE 60; RESP 16; O2SAT 100
--- NOTE | 2020-04-25 19:53 | ED_ITS ---
HPI - Neck Pain/Injury <BERT Beckham - Last Filed: 04/25/20 20:00> General Chief Complaint: Neck Pain/Injury Stated Complaint: Lt Lymphnode Pain In Neck/Lt Abd Pain Time Seen by Provider: 04/25/20 14:02 Source: patient Mode of arrival: Ambulatory Limitations: no limitations History of Present Illness HPI Narrative: The patient is a 24-year-old female marijuana user with history of juvenile rheumatoid arthritis who presents with a chief complaint of a swollen lymph node on the left side of her neck. She states that it is painful enough that she does not want to turn her head. It showed of last week, went away and then came back. She denies any ear pain, denies any sore throat. She also had some abdominal pain over the past few days, that states it comes and goes. She does have history of hiatal hernia and ovarian cyst. She denies any fevers, sore throat, ear pain, shortness of breath or cough. She has not taken anything at home to feel better. She denies any dysuria urgency or frequency. Related Data Home Medications Medication Instructions Recorded Confirmed medroxyprogesterone 150 mg/mL 150 mg IM [id number] 01/22/20 01/22/20 intramuscular syringe adalimumab [Humira(CF) Pen] See Rx Instructions .ROUTE .COMPLEX 04/25/20 04/25/20 hydroxyzine HCl 50 mg PO DAILY PRN 04/25/20 04/25/20 Previous Rx's Medication Instructions Recorded trazodone 50 mg tablet See Rx Instructions PO BEDTIME PRN 02/27/20 #30 tab sertraline 100 mg tablet 150 mg PO DAILY #45 tab 03/06/20 cyclobenzaprine 5 mg tablet 5 mg PO TID PRN #30 tab 04/04/20 ketorolac 10 mg PO TID PRN #14 tab 04/25/20 Allergies Allergy/AdvReac Type Severity Reaction Status Date / Time vancomycin [VANCOMYCIN] AdvReac Mild NECK Verified 04/25/20 14:12 STIFFNESS Review of Systems <BERT Beckham - Last Filed: 04/25/20 20:00> Review of Systems Narrative: GENERAL: Denies chills, fatigue, malaise, fever, sweats. HEENT: See HPI RESPIRATORY: Denies dyspnea, cough, wheezing, hemoptysis, sputum. CARDIOVASCULAR: See HPI GASTROINTESTINAL: See HPI : Denies dysuria, frequency, incontinence, hematuria, urinary retention. MUSCULOSKELETAL: denies weakness, joint pain, or bony pain SKIN: Denies rash, skin lesions, or other NEUROLOGIC: Denies weakness, headache, numbness, change in speech, confusion, seizures, incoordination. PSYCHIATRIC: No concerning psychosocial issues. 12 point review of systems is negative except for those stated above Patient History <BERT Beckham - Last Filed: 04/25/20 20:00> Medical History (Updated 04/25/20 @ 16:51 by BERT Beckham) Anxiety (Chronic) GERD (gastroesophageal reflux disease) (Chronic) 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) Septic joint (Resolved) Spontaneous vaginal delivery (Inactive) Surgical History History of hip surgery (Resolved) History of Malachi fundoplication (Resolved ~2006) History of tonsillectomy (Resolved) Martha teeth removed (Resolved) Family History Mother Chronic nephritis Grandmother History of Graves' disease Social History Smoking Status: Never smoker substance use type: marijuana Smoking Status: Never smoker alcohol intake frequency: a few times a week Substance Use Type: marijuana Exam <BERT Beckham - Last Filed: 04/25/20 20:00> Narrative Exam Narrative: GENERAL: This is a well-nourished, well-developed patient, no acute distress HEAD: Atraumatic. Normocephalic. No temporal or scalp tenderness. EYES: Pupils equal round and reactive. Extraocular motions intact. No scleral icterus. No injection or drainage. ENT: Nose without bleeding, purulent drainage or septal hematoma. Throat without erythema, tonsillar hypertrophy or exudate. Uvula midline. Airway patent. NECK: Trachea midline. No JVD . Slight isolated submandibular lymphadenopathy on left side. No posterior lymphadenopathy. Supple, nontender, no meningeal signs. CARDIOVASCULAR: Regular rate and rhythm RESPIRATORY: Clear to auscultation. Breath sounds equal bilaterally. No wheezes, rales, or rhonchi. No cough. No increased respiratory effort. No accessory muscle use. GASTROINTESTINAL: Abdomen soft, non-tender, nondistended. No hepato- splenomegaly, or palpable masses. No guarding. Active bowel sounds all 4 quadrants. No pain to palpation, no guarding. EXTREMITIES: No clubbing, cyanosis, or edema. No joint tenderness, effusion, or edema noted. BACK: Nontender without deformity or crepitance. No flank tenderness. NEURO: AOx3. SKIN: No rash or erythema on visible skin Initial Vital Signs Initial Vital Signs: Vital Signs Temperature 98.7 F 04/25/20 14:07 Pulse Rate 71 04/25/20 14:07 Respiratory Rate 16 04/25/20 14:07 Blood Pressure 123/75 04/25/20 14:07 Pulse Oximetry 99 04/25/20 14:07 <Moose Moser DO - Last Filed: 04/29/20 18:04> Initial Vital Signs Initial Vital Signs: Vital Signs Temperature 98.7 F 04/25/20 14:07 Pulse Rate 71 04/25/20 14:07 Respiratory Rate 16 04/25/20 14:07 Blood Pressure 123/75 04/25/20 14:07 Pulse Oximetry 99 04/25/20 14:07 Scores <BERT Beckham - Last Filed: 04/25/20 20:00> GCS Lorenzo coma scale eye opening: Spontaneous [place] coma scale verbal response: Orientated Lorenzo coma scale motor response: Obey commands [place] coma scale total score: 15 Course <BERT Beckham - Last Filed: 04/25/20 20:00> Orders Ordered: Discontinued Medications Sodium Chloride (Normal Saline 0.9%) 1,000 mls @ 1,000 mls/hr IV BOLUS ONE Stop: 04/25/20 16:20 Last Infusion: 04/25/20 16:55 Dose: 0 mls/hr Documented by: Admin: 04/25/20 15:33 Dose: 1,000 mls/hr Documented by: MICA Ketorolac Tromethamine (Toradol) 30 mg IV NOW ONE Stop: 04/25/20 15:31 Last Admin: 04/25/20 15:45 Dose: 30 mg Documented by: MICA Ondansetron HCl (Zofran) 4 mg IV NOW ONE Stop: 04/25/20 15:22 Last Admin: 04/25/20 15:33 Dose: 4 mg Documented by: MICA Vital Signs Vital signs: Vital Signs - 8 hr 04/25/20 14:07 04/25/20 16:20 Temperature 98.7 F Pulse Rate 71 60 Respiratory Rate 16 16 Blood Pressure 123/75 Blood Pressure [Left Arm] 104/50 L Pulse Oximetry 99 100 <Moose Moser DO - Last Filed: 04/29/20 18:04> Orders Ordered: Discontinued Medications Sodium Chloride (Normal Saline 0.9%) 1,000 mls @ 1,000 mls/hr IV BOLUS ONE Stop: 04/25/20 16:20 Last Infusion: 04/25/20 16:55 Dose: 0 mls/hr Documented by: Admin: 04/25/20 15:33 Dose: 1,000 mls/hr Documented by: MICA Ketorolac Tromethamine (Toradol) 30 mg IV NOW ONE Stop: 04/25/20 15:31 Last Admin: 04/25/20 15:45 Dose: 30 mg Documented by: MICA Ondansetron HCl (Zofran) 4 mg IV NOW ONE Stop: 04/25/20 15:22 Last Admin: 04/25/20 15:33 Dose: 4 mg Documented by: MICA Vital Signs Vital signs: Vital Signs - 8 hr 04/25/20 14:07 04/25/20 16:20 Temperature 98.7 F Pulse Rate 71 60 Respiratory Rate 16 16 Blood Pressure 123/75 Blood Pressure [Left Arm] 104/50 L Pulse Oximetry 99 100 MDM - Neck Pain/Injury <BERT Beckham - Last Filed: 04/25/20 20:00> Lab Data Result diagrams: 04/25/20 14:12 04/25/20 14:12 Labs: Lab Results 04/25/20 04/25/20 04/25/20 Range/Units 14:12 14:12 14:12 WBC 5.4 (4.5-11.0) X10^3/uL RBC 4.29 (4.0-5.2) X10^6/uL Hgb 11.7 L (12.0-16.0) g/dL Hct 35.3 L (36-46) % MCV 82.4 (80-100) fL MCH 27.3 (26-34) PG MCHC 33.2 (30-36) % RDW 14.7 (11.6-14.8) % Plt Count 193 (150-400) X10^3/uL Neut % (Auto) 49.0 L (50-75) % Lymph % (Auto) 39.5 (25-40) % Page % (Auto) 8.2 (3-14) % Eos % (Auto) 2.2 (2-4) % Baso % (Auto) 1.1 (0-2) % Neut # (Auto) 2600 (9780-4115) /uL Lymph # (Auto) 2100 (1626-2489) /uL Page # (Auto) 400 (0-900) /uL Eos # (Auto) 100 (0-450) /uL Baso # (Auto) 100 (0-100) /uL PT 11.9 (10.1-12.7) SECONDS INR 1.0 (0.9-1.3) APTT 31 (26.4-36.2) SECONDS Sodium 136 L (137-145) mmol/L Potassium 4.0 (3.4-5.1) mmol/L Chloride 107 (98-107) mmol/L Carbon Dioxide 25 (22-32) mmol/L BUN 14 (7-17) mg/dL Creatinine 1.01 (0.52-1.04) mg/dL Estimated GFR > 60.0 (>60) mL/min BUN/Creatinine Ratio 13.9 (6-22) Glucose 84 (70-100) mg/dL Calcium 9.1 (8.4-10.2) mg/dL Total Bilirubin 0.5 (0.2-1.3) mg/dL AST 24 (14-36) IU/L ALT 11 (<35) IU/L Alkaline Phosphatase 76 (38-126) U/L Total Protein 7.2 (6.3-8.2) g/dL Albumin 4.2 (3.5-5.0) g/dL Globulin 3.0 (1.7-4.1) g/dL Albumin/Globulin Ratio 1.4 (1.0-2.8) Amylase (30-110) U/L Lipase 149 (23-300) U/L Serum , Qual (Negative) Monoscreen (Negative) 04/25/20 04/25/20 04/25/20 Range/Units 14:12 14:12 14:12 WBC (4.5-11.0) X10^3/uL RBC (4.0-5.2) X10^6/uL Hgb (12.0-16.0) g/dL Hct (36-46) % MCV (80-100) fL MCH (26-34) PG MCHC (30-36) % RDW (11.6-14.8) % Plt Count (150-400) X10^3/uL Neut % (Auto) (50-75) % Lymph % (Auto) (25-40) % Page % (Auto) (3-14) % Eos % (Auto) (2-4) % Baso % (Auto) (0-2) % Neut # (Auto) (8688-9180) /uL Lymph # (Auto) (4609-5901) /uL Page # (Auto) (0-900) /uL Eos # (Auto) (0-450) /uL Baso # (Auto) (0-100) /uL PT (10.1-12.7) SECONDS INR (0.9-1.3) APTT (26.4-36.2) SECONDS Sodium (137-145) mmol/L Potassium (3.4-5.1) mmol/L Chloride (98-107) mmol/L Carbon Dioxide (22-32) mmol/L BUN (7-17) mg/dL Creatinine (0.52-1.04) mg/dL Estimated GFR (>60) mL/min BUN/Creatinine Ratio (6-22) Glucose (70-100) mg/dL Calcium (8.4-10.2) mg/dL Total Bilirubin (0.2-1.3) mg/dL AST (14-36) IU/L ALT (<35) IU/L Alkaline Phosphatase (38-126) U/L Total Protein (6.3-8.2) g/dL Albumin (3.5-5.0) g/dL Globulin (1.7-4.1) g/dL Albumin/Globulin Ratio (1.0-2.8) Amylase 108 (30-110) U/L Lipase (23-300) U/L Serum , Qual Negative (Negative) Monoscreen Negative (Negative) Point of Care Testing Test Results Negative Urine Dip Bedside Urine Glucose Negative Bedside Urine Bilirubin + 1 Bedside Urine Ketone +/- 5 Urine Specific [place] 1.020 Bedside Urine Occult Blood - Negative Bedside Urine pH 6.0 Bedside Urine Protein +/- 15 Bedside Urine Urobilinogen - Negative Bedside Urine Nitrite - Negative Bedside Urine Leukocytes - Negative Esterase Imaging Data Abdominal x-ray: Radiologist's Impression: [address] [place] [id number] XRay Report Signed Patient: Nasim Trivedi JMR#: [id number] : 1995Acct:[id number] Age/Sex: 24 te of Service: 04/25/20 Loc: ED Accession Number: [id number] Procedure: XR acute abdomen series Ordering Provider: Shyann Frances PROCEDURE: XR ACUTE ABDOMEN SERIES INDICATIONS: abd pain TECHNIQUE: One view chest and two views of the abdomen were acquired. COMPARISON: None. FINDINGS: Surgical changes and devices: None. Chest: Lungs are clear. Heart size is normal. No pleural effusions. No pneumoperitoneum. Abdomen: Bowel gas pattern is normal. No suspicious calcifications. Visualized solid organ contours appear normal. Bones: No suspicious bony lesions. IMPRESSION: Normal for age, source of current abdominal pain symptoms is not seen. Dictated by: Ross Her M.D. on 04/25/2020 at 15:14 Approved by: Ross Her M.D. on 04/25/2020 at 15:14 ECG Data Attestation: I personally reviewed and interpreted this ECG as follows: Interpretation: SR 70, IA 152, no ectopy noted. no st elevated or depression. seen by Dr Moser [facility] Narrative Medical decision making narrative: The patient is a 24-year-old female who presents with a chief complaint of slight lymphadenopathy at her left submandibular area, no fever nausea vomiting. She also had slight abdominal pain prior to arrival as a ?few seconds of chest pain during our interview. Her EKG is normal. Her lab work is grossly normal. Given the patient's singular lymphadenopathy I did check for mono, Monistat came back negative. The patient felt much improved throughout her stay in the emergency department. Back to her abdominal pain completely went away. Given how much improved throughout her stay in the emergency department, patient did not want to pursue anything further via imaging etcetera. I discussed at length the importance of following up with primary care provider coming back to the emergency department for any acute concerns such as abdominal pain with fever, severe abdominal pain etcetera. Encouraged conservative care for her lymph node as well as close follow-up in case it does not go away. Patient has no questions or concerns upon discharge and states understanding return precautions as well as follow-up care. <Moose Moser, DO - Last Filed: 04/29/20 18:04> Lab Data Labs: Lab Results 04/25/20 04/25/20 04/25/20 Range/Units 14:12 14:12 14:12 WBC 5.4 (4.5-11.0) X10^3/uL RBC 4.29 (4.0-5.2) X10^6/uL Hgb 11.7 L (12.0-16.0) g/dL Hct 35.3 L (36-46) % MCV 82.4 (80-100) fL MCH 27.3 (26-34) PG MCHC 33.2 (30-36) % RDW 14.7 (11.6-14.8) % Plt Count 193 (150-400) X10^3/uL Neut % (Auto) 49.0 L (50-75) % Lymph % (Auto) 39.5 (25-40) % Page % (Auto) 8.2 (3-14) % Eos % (Auto) 2.2 (2-4) % Baso % (Auto) 1.1 (0-2) % Neut # (Auto) 2600 (7152-9474) /uL Lymph # (Auto) 2100 (3028-6545) /uL Page # (Auto) 400 (0-900) /uL Eos # (Auto) 100 (0-450) /uL Baso # (Auto) 100 (0-100) /uL PT 11.9 (10.1-12.7) SECONDS INR 1.0 (0.9-1.3) APTT 31 (26.4-36.2) SECONDS Sodium 136 L (137-145) mmol/L Potassium 4.0 (3.4-5.1) mmol/L Chloride 107 (98-107) mmol/L Carbon Dioxide 25 (22-32) mmol/L BUN 14 (7-17) mg/dL Creatinine 1.01 (0.52-1.04) mg/dL Estimated GFR > 60.0 (>60) mL/min BUN/Creatinine Ratio 13.9 (6-22) Glucose 84 (70-100) mg/dL Calcium 9.1 (8.4-10.2) mg/dL Total Bilirubin 0.5 (0.2-1.3) mg/dL AST 24 (14-36) IU/L ALT 11 (<35) IU/L Alkaline Phosphatase 76 (38-126) U/L Total Protein 7.2 (6.3-8.2) g/dL Albumin 4.2 (3.5-5.0) g/dL Globulin 3.0 (1.7-4.1) g/dL Albumin/Globulin Ratio 1.4 (1.0-2.8) Amylase (30-110) U/L Lipase 149 (23-300) U/L Serum , Qual (Negative) Monoscreen (Negative) 04/25/20 04/25/20 04/25/20 Range/Units 14:12 14:12 14:12 WBC (4.5-11.0) X10^3/uL RBC (4.0-5.2) X10^6/uL Hgb (12.0-16.0) g/dL Hct (36-46) % MCV (80-100) fL MCH (26-34) PG MCHC (30-36) % RDW (11.6-14.8) % Plt Count (150-400) X10^3/uL Neut % (Auto) (50-75) % Lymph % (Auto) (25-40) % Page % (Auto) (3-14) % Eos % (Auto) (2-4) % Baso % (Auto) (0-2) % Neut # (Auto) (4633-2292) /uL Lymph # (Auto) (8866-7636) /uL Page # (Auto) (0-900) /uL Eos # (Auto) (0-450) /uL Baso # (Auto) (0-100) /uL PT (10.1-12.7) SECONDS INR (0.9-1.3) APTT (26.4-36.2) SECONDS Sodium (137-145) mmol/L Potassium (3.4-5.1) mmol/L Chloride (98-107) mmol/L Carbon Dioxide (22-32) mmol/L BUN (7-17) mg/dL Creatinine (0.52-1.04) mg/dL Estimated GFR (>60) mL/min BUN/Creatinine Ratio (6-22) Glucose (70-100) mg/dL Calcium (8.4-10.2) mg/dL Total Bilirubin (0.2-1.3) mg/dL AST (14-36) IU/L ALT (<35) IU/L Alkaline Phosphatase (38-126) U/L Total Protein (6.3-8.2) g/dL Albumin (3.5-5.0) g/dL Globulin (1.7-4.1) g/dL Albumin/Globulin Ratio (1.0-2.8) Amylase 108 (30-110) U/L Lipase (23-300) U/L Serum , Qual Negative (Negative) Monoscreen Negative (Negative) Point of Care Testing Test Results Negative Urine Dip Bedside Urine Glucose Negative Bedside Urine Bilirubin + 1 Bedside Urine Ketone +/- 5 Urine Specific [place] 1.020 Bedside Urine Occult Blood - Negative Bedside Urine pH 6.0 Bedside Urine Protein +/- 15 Bedside Urine Urobilinogen - Negative Bedside Urine Nitrite - Negative Bedside Urine Leukocytes - Negative Esterase Discharge Plan Departure Patient Disposition: Home Clinical Impression: Lymphadenopathy Abdominal pain Qualifiers: Abdominal location: generalized Qualified Code(s): R10.84 - Generalized abdominal pain Chest pain Qualifiers: Chest pain type: unspecified Qualified Code(s): R07.9 - Chest pain, unspecified Discharge Date/Time: 04/25/20 16:56 Instructions: DI for Abdominal Pain-Adult, DI for Lymphadenopathy, DI for Chest Pain Activity Restrictions/Additional Instructions: Thank you for trusting us with your care today As I discussed, your lab work and imaging came back normal. Your mono test came back negative. You have no elevated white blood cell count in your labs in your abdominal pain improved during your emergency department stay I did send a small prescription of Toradol to [facility] in [place] I have given you a prescription of Toradol. This is an NSAID. Do not combine it with other NSAIDs such as Aleve or ibuprofen. I suggest taking it with some food, as it can irritate your stomach. Please follow-up with primary care provider in the next few days. Please come back to the emergency department for any acute concerns such as severe abdominal pain, normally with fever, inability keep down fluids etcetera Prescriptions: New ketorolac 10 mg tablet 10 mg PO TID PRN (Reason: pain) Qty: 14 RF: 0 No Action sertraline 100 mg tablet 150 mg PO DAILY Qty: 45 RF: 1 cyclobenzaprine 5 mg tablet 5 mg PO TID PRN (Reason: muscle spasm) Qty: 30 RF: 0 medroxyprogesterone 150 mg/mL syringe 150 mg IM [id number] RF: 0 trazodone 50 mg tablet See Rx Instructions PO BEDTIME PRN (Reason: insomnia) Qty: 30 RF: 5 Humira(CF) Pen 40 mg/0.4 mL pen injector kit See Rx Instructions .ROUTE .COMPLEX RF: 0 hydroxyzine HCl 25 mg tablet 50 mg PO DAILY PRN (Reason: anxiety) RF: 0 Referrals: Maribell Reza DO [Primary Care Provider] - <Moose Moser DO - Last Filed: 04/29/20 18:04> Cosign ED Attending Cosisamarature Attestation: Dr Moser Co-Sign Statement: I was available for consultation during this patient's emergency department visit. This chart is signed by myself for administrative purposes only. I did not have direct contact with this patient during this visit. They were seen independently by the APC.
== END 2020-04-25 16:56 | disposition home or self-care (01) ==
PROVIDERS: Emergency Provider Nurse Practitioner Family; PCP Family Medicine
DX: R10.84 Generalized abdominal pain (principal); R07.9 Chest pain, unspecified; R59.1 Generalized enlarged lymph nodes
CPT/HCPCS: 36415; 74022; 80053; 81003; 81025; 82150; 83690; 84703; 85025; 85610; 85730; 86318; 93005; 96361; 96374; 96375; 99284; J1885; J2405

== ENCOUNTER → 2020-05-04 09:10 | Outpatient (CLI) | payer OTHER, MEDICAID, SELFPAY | PROVIDERS: PCP Family Medicine; Visit Provider Physician Assistant | DX: T14.8XXA Other injury of unspecified body region, initial encounter (principal) | CPT/HCPCS: 87070; 87075; 87077; 87147; 87186; 87205 ==

== ENCOUNTER → 2020-05-06 11:30 | Outpatient (CLI) | payer OTHER, MEDICAID, SELFPAY ==
--- NOTE | 2020-05-06 11:31 | DI.RAD.S_ITS ---
PROCEDURE: [place] BARIUM SWALLOW INDICATIONS: rule out stricture, slipped wrap, esophageal dysmotility COMPARISON: None. FINDINGS: Function: Small tertiary contraction waves in the distal esophagus compatible with mild esophageal dysmotility No elicited gastroesophageal reflux. There is normal transit of a 13 mm calibrated barium tablet through the esophagus into the stomach. Morphology: Air-contrast images demonstrate normal mucosal morphology. Single contrast views show no esophageal strictures, extrinsic mass effects, or diverticula. Limited images of the stomach demonstrate normal appearance. IMPRESSION: 1. No evidence of esophageal stricture. 2. Mild distal esophageal dysmotility. Dictated by: Tania Goddard MD, PhD on 05/06/2020 at 13:07 Approved by: Tania Goddard MD, PhD on 05/06/2020 at 13:08
== END ==
PROVIDERS: PCP Family Medicine; Referring Provider Surgery; Visit Provider Surgery
DX: K22.4 Dyskinesia of esophagus (principal); R11.10 Vomiting, unspecified; R10.13 Epigastric pain; Z98.890 Other specified postprocedural states
CPT/HCPCS: 74220

== ENCOUNTER → 2020-05-20 08:51 | Outpatient (CLI) | payer OTHER, MEDICAID, SELFPAY ==
--- NOTE | 2020-05-20 08:52 | DI.NM.S_ITS ---
PROCEDURE: NM GASTRIC EMPTYING STUDY RADIOPHARMACEUTICAL: 1 mCi Tc-99m sulfur colloid in an egg sandwich. INDICATIONS: Regurgitating undigested food, normal esophagram TECHNIQUE: A Tc-99m labeled sulfur colloid labeled egg sandwich or oatmeal was served to the patient. Anterior and posterior planar images of the abdomen were obtained at 0 minutes and 30 minutes, then at hourly intervals up to 4 hours. The patient was upright and ambulating during the interval. COMPARISON: [facility], , [place] BARIUM SWALLOW, 05/06/2020, 10:53. FINDINGS: The stomach has normal size, morphology, and position. There is normal emptying of solid gastric contents from the stomach by visual inspection. No gastroesophageal reflux is visualized. The percentage of tracer retained at specific time points are as follows: Time point Percent gastric retention Normal range 30 minutes 79% 70% or more 1 hour 42% 30% to 90% 2 hours 4% 60% or less 3 hours - 30% or less 4 hours - 10% or less IMPRESSION: Normal gastric emptying study. Dictated by: Jeanine Valencia M.D. on 05/20/2020 at 12:11 Approved by: Jeanine Valencia M.D. on 05/20/2020 at 12:13
== END ==
PROVIDERS: PCP Family Medicine; Referring Provider Surgery; Visit Provider Surgery
DX: R10.13 Epigastric pain (principal); R11.10 Vomiting, unspecified; R63.0 Anorexia; Z98.890 Other specified postprocedural states
CPT/HCPCS: 78264; A9541

== ENCOUNTER 2020-07-24 14:52 | Emergency (ER) | payer OTHER, MEDICAID, SELFPAY ==
[2020-07-24] VITALS (13 sets, daily range): BP systolic 86–115; BP diastolic 51–78; PULSE 83–113; RESP 14; TEMP 36.5; O2SAT 97–100; BMI 20.5
[2020-07-24 15:25] LABS: Add Manual Diff / Slide Review NO; Basophils Absolute Auto 0 /uL (0-100); Basophils Percent Auto 0.5 % (0-2); Eosinophils Absolute Auto 0 /uL (0-450); Eosinophils Percent Auto 0.6 % (2-4); Hematocrit 37.3 % (36-46); Hemoglobin 11.7 g/dL (12.0-16.0); Lymphocytes Absolute Auto 1100 /uL (1100-4500); Lymphocytes Percent Auto 36.3 % (25-40); Mean Corpuscular HGB Conc 31.4 % (30-36); Mean Corpuscular Hemoglobin 26.1 PG (26-34); Monocytes Absolute Auto 500 /uL (0-900); Monocytes Percent Auto 17.4 % (3-14); Neutrophils Absolute Auto 1400 /uL (1500-7000); Neutrophils Percent Auto 45.2 % (50-75); Platelet Count 203 X10^3/uL (150-400); Red Cell Distribution Width 16.1 % (11.6-14.8); White Blood Cell Count 3.1 X10^3/uL (4.5-11.0)
[2020-07-24 15:31] LABS: Alanine Aminotransferase 13 IU/L (<35); Albumin 3.9 g/dL (3.5-5.0); Albumin Globulin Ratio 1.3 (1.0-2.8); Alkaline Phosphatase 60 U/L (38-126); Aspartate Aminotransferase 23 IU/L (14-36); BUN Creatinine Ratio 7.8 (6-22); Bilirubin Total 0.3 mg/dL (0.2-1.3); Blood Urea Nitrogen 8 mg/dL (7-17); Calcium 8.8 mg/dL (8.4-10.2); Carbon Dioxide 29 mmol/L (22-32); Chloride 105 mmol/L (98-107); Estimated Glomerular Filt Rate > 60.0 mL/min (>60); Globulin 2.9 g/dL (1.7-4.1); Glucose 62 mg/dL (70-100); HEMOLYSIS < 15 (0-50); Lipase 314 U/L (23-300); Magnesium 1.7 mg/dL (1.6-2.3); Potassium 3.1 mmol/L (3.4-5.1); Sodium 140 mmol/L (137-145); Total Protein 6.8 g/dL (6.3-8.2)
[2020-07-24] MEDS: SODIUM CHLORIDE 0.9% 1,000 ML 1000 ML IV ×3 (15:32→17:47)
--- NOTE | 2020-07-24 16:00 | ED_ITS ---
HPI - Syncope General Chief Complaint: Dizziness Stated Complaint: LIGHTHEADED,NAUSEA,MIGRAINE, BACK PAIN Time Seen by Provider: 07/24/20 15:17 Source: patient Mode of arrival: Ambulatory Limitations: no limitations History of Present Illness HPI narrative: 24-year-old with ankylosing spondylitis, juvenile rheumatoid arthritis, 2 months of chronic daily headache with prior diagnosis of migraine, post Malachi fundoplication and unable to use nonsteroidals presents with 2 syncopal episodes today. She does note that yesterday her back pain and headache were so significant that she was in bed for almost 20 hours. She has been eating and drinking less simply because she is not getting out of bed and she is hurting. Her syncopal episode today was associated with a sense that the room was shrinking down and she had a sense that she was going to pass out prior to slumping to the floor. She does not report any injuries with the slumped to the floor. After the 1st episode she was able to get up was walking again toward the refrigerator to get some juice and had a 2nd syncopal episode. She denies any possibility of and states that her LMP was 3 weeks ago. She has had prior episodes of syncope similar to this. She denies any fevers, cough, chills. She notes no significant epigastric tenderness recently, she has had increased musculoskeletal pain at multiple areas including her low back shoulders knees and hips. She has had a number of episodes of iritis in the past but has no current symptoms at this time. She does have a follow-up appointment scheduled with her temperer in the near future. In terms of her headaches, she has spoken to her primary care physician. In the past she had use Relpax successfully but then was overusing it and is no longer prescribe that. She has not been on migraine prophylaxis previously Related Data Home Medications Medication Instructions Recorded Confirmed medroxyprogesterone 150 mg/mL 150 mg IM [id number] 01/22/20 07/24/20 intramuscular syringe hydroxyzine HCl 50 mg PO DAILY PRN 04/25/20 07/24/20 sertraline 100 mg PO DAILY 07/24/20 07/24/20 trazodone 25 - 50 mg PO BEDTIME PRN 07/24/20 07/24/20 Previous Rx's Medication Instructions Recorded eletriptan 20 mg tablet See Rx Instructions PO .COMPLEX 05/16/20 #14 tab cyclobenzaprine 10 mg tablet 10 mg PO TID PRN #30 tab 06/13/20 tramadol 50 mg tablet 50 - 100 mg PO BID PRN #20 tab 07/02/20 amitriptyline 25 mg PO BEDTIME #30 tab 07/24/20 Allergies Allergy/AdvReac Type Severity Reaction Status Date / Time vancomycin [VANCOMYCIN] AdvReac Mild NECK Verified 06/07/20 15:37 STIFFNESS Review of Systems Review of Systems Narrative: Remainder of review of systems including constitutional, ENT, cardiovascular, respiratory, GI, , musculoskeletal, skin, neurologic and psychiatric systems reviewed and are unremarkable except as noted in HPI. Patient History Medical History Ankylosing spondylitis (Acute) Anxiety (Chronic) GERD (gastroesophageal reflux disease) (Chronic) 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) Migraines (Acute) Septic joint (Resolved) Spontaneous vaginal delivery (Inactive) Surgical History History of hip surgery (Resolved) History of Malachi fundoplication (Resolved ~2006) History of tonsillectomy (Resolved) [place] teeth removed (Resolved) Family History Mother Chronic nephritis Grandmother History of Graves' disease Social History marital status: unknown household members: family Smoking Status: Never smoker alcohol intake: current substance use type: marijuana Smoking Status: Never smoker alcohol intake frequency: a few times a week Substance Use Type: marijuana Exam Narrative Exam Narrative: General: Healthy appearing, in no acute distress. But lying on the bed and trying to remain still to prevent back pain. HEENT: Moist mucous membranes, normal sclera with reactive pupils, Neck: supple Respiratory: Lungs are clear to auscultation, no wheezing no rales no rhonchi. Full and symmetrical air movement Cardiac: Regular rate and rhythm no murmurs no bruits Abdomen: Soft nontender good bowel tones, no flank pain Skin: Warm and dry, no rashes Neurologic: Grossly neurologically intact with no obvious asymmetries or abnormalities Spine: Minor tenderness L3-4 area right of midline and paraspinous muscle spasm without any skin changes Extremities: No trauma, well perfused Psych: Cooperative, appropriate insight and affect Initial Vital Signs Initial Vital Signs: Vital Signs Temperature 97.7 F 07/24/20 14:54 Pulse Rate 88 07/24/20 14:54 Respiratory Rate 14 07/24/20 14:54 Blood Pressure 86/51 L 07/24/20 14:54 Pulse Oximetry 99 07/24/20 14:54 Course Orders Ordered: ED Orders 07/24/20 15:21 Complete Blood Count AUTO DIFF Stat Comprehensive Metabolic Panel Stat Lipase Stat Magnesium Stat 07/24/20 18:00 Urinalysis and Microscopic Stat Discontinued Medications Sodium Chloride (Normal Saline 0.9%) 1,000 mls @ 1,000 mls/hr IV BOLUS ONE Stop: 07/24/20 16:16 Last Infusion: 07/24/20 16:33 Dose: 0 mls/hr Documented by: Admin: 07/24/20 15:32 Dose: 1,000 mls/hr Documented by: JENNA Sodium Chloride (Normal Saline 0.9%) 1,000 mls @ 1,000 mls/hr IV BOLUS ONE Stop: 07/24/20 17:00 Last Infusion: 07/24/20 17:35 Dose: 0 mls/hr Documented by: Admin: 07/24/20 16:33 Dose: 1,000 mls/hr Documented by: KILLIAN Sodium Chloride (Normal Saline 0.9%) 1,000 mls @ 1,000 mls/hr IV BOLUS ONE Stop: 07/24/20 18:35 Last Admin: 07/24/20 17:47 Dose: 1,000 mls/hr Documented by: KAREN Ketorolac Tromethamine (Toradol) 15 mg IV NOW ONE Stop: 07/24/20 16:21 Last Admin: 07/24/20 17:19 Dose: 15 mg Documented by: KILLIAN Vital Signs Vital signs: Vital Signs - 8 hr 07/24/20 14:54 07/24/20 15:48 07/24/20 15:49 Temperature 97.7 F Pulse Rate 88 Respiratory Rate 14 Blood Pressure 86/51 L Pulse Oximetry 99 99 99 07/24/20 15:54 07/24/20 16:00 07/24/20 16:30 Temperature Pulse Rate 83 87 Respiratory Rate Blood Pressure 103/55 L 110/67 Pulse Oximetry 99 100 07/24/20 17:00 07/24/20 17:28 07/24/20 17:29 Temperature Pulse Rate 85 86 96 H Respiratory Rate Blood Pressure 115/62 107/62 115/61 Pulse Oximetry 99 99 99 07/24/20 17:30 Temperature Pulse Rate 113 H Respiratory Rate 14 Blood Pressure 115/61 Pulse Oximetry 99 MDM - Syncope Medical Records Attestation: I reviewed the patient's medical records. Lab Data Attestation: I reviewed the patient's lab results. Result diagrams: 07/24/20 15:21 07/24/20 15:21 Labs: Lab Results 07/24/20 07/24/20 07/24/20 Range/Units 15:21 15:21 18:00 WBC 3.1 L (4.5-11.0) X10^3/uL RBC 4.50 (4.0-5.2) X10^6/uL Hgb 11.7 L (12.0-16.0) g/dL Hct 37.3 (36-46) % MCV 83.0 (80-100) fL MCH 26.1 (26-34) PG MCHC 31.4 (30-36) % RDW 16.1 H (11.6-14.8) % Plt Count 203 (150-400) X10^3/uL Neut % (Auto) 45.2 L (50-75) % Lymph % (Auto) 36.3 (25-40) % [place] % (Auto) 17.4 H (3-14) % Eos % (Auto) 0.6 L (2-4) % Baso % (Auto) 0.5 (0-2) % Neut # (Auto) 1400 L (3550-3467) /uL Lymph # (Auto) 1100 (7956-5194) /uL [place] # (Auto) 500 (0-900) /uL Eos # (Auto) 0 (0-450) /uL Baso # (Auto) 0 (0-100) /uL Sodium 140 (137-145) mmol/L Potassium 3.1 L (3.4-5.1) mmol/L Chloride 105 (98-107) mmol/L Carbon Dioxide 29 (22-32) mmol/L BUN 8 (7-17) mg/dL Creatinine 1.02 (0.52-1.04) mg/dL Estimated GFR > 60.0 (>60) mL/min BUN/Creatinine Ratio 7.8 (6-22) Glucose 62 L (70-100) mg/dL Calcium 8.8 (8.4-10.2) mg/dL Magnesium 1.7 (1.6-2.3) mg/dL Total Bilirubin 0.3 (0.2-1.3) mg/dL AST 23 (14-36) IU/L ALT 13 (<35) IU/L Alkaline Phosphatase 60 (38-126) U/L Total Protein 6.8 (6.3-8.2) g/dL Albumin 3.9 (3.5-5.0) g/dL Globulin 2.9 (1.7-4.1) g/dL Albumin/Globulin Ratio 1.3 (1.0-2.8) Lipase 314 H (23-300) U/L Urine Color Yellow Urine Appearance Clear Urine pH 7.0 (4.5-8.0) Ur Specific [place] 1.020 (1.000-1.035) Urine Protein Negative (Negative) Urine Glucose (UA) Negative (Negative) g/dL Urine Ketones Negative (NEGATIVE) Urine Occult Blood Negative (Negative) Urine Nitrate Negative (Negative) Urine Bilirubin Negative (NEGATIVE) Urine Urobilinogen 0.2 (0.2) E.U./dL Ur Leukocyte Esterase Negative (NEGATIVE) Point of Care Testing Test Results Negative Glucose POC 112 MDM Narrative Medical decision making narrative: 24-year-old presents with 2 syncopal episodes, significantly orthostatic. Labs do not suggest acute infection. Remainder of workup is relatively unremarkable. Suspect that her back pain joint pain and headache that all seem to be related to her JRA flare have caused her to not eat or drink and she is dehydrated. After 3 L of fluid she is feeling significantly better has finally voided and is no longer orthostatic. Regarding her chronic daily headaches I am going to suggest that she try 25 mg of amitriptyline at night for the next couple of weeks and follow-up with her primary care physician. She is safe for home discharge Discharge Plan Departure Patient Disposition: Home Clinical Impression: Juvenile rheumatoid arthritis, Syncope, vasovagal, Acute dehydration Ankylosing spondylitis Qualifiers: Ankylosing spondylitis location: unspecified site of spine Qualified Code(s): M45.9 - Ankylosing spondylitis of unspecified sites in spine Migraines Qualifiers: Migraine type: other Status migrainosus presence: with status migrainosus Intractability: intractable Qualified Code(s): G43.811 - Other migraine, intractable, with status migrainosus Instructions: Orthostatic Hypotension, DI for Migraine Activity Restrictions/Additional Instructions: Thank you for coming in today. Your blood work was reassuring. I suspect that the reason that you had the 2 syncopal episodes today were because she was so significantly dehydrated. You required 3 L of fluid to get back to feeling better and beginning to make urine again. I suspect that the reason that you got so dehydrated is that you are having so much pain with your rheumatoid arthritis and your headaches. It is important to make sure the you are at least drinking fluid even when you are feeling unwell. For your headaches I do want you to follow-up with your primary care physician and talk about prophylactic medications that may be helpful. In the meantime, I am going to suggest trying 25 mg of amitriptyline, a very low dose, to try and decrease the number of headaches and perhaps even decrease some of your chronic arthritis-type pain. This medication will make you sleepy. Please take at about 2 hours before you want to fall sleep so that you are ready to wake up that your usual time in the morning. It can give you a very dry mouth and make you a bit dizzy for the 1st number of days. You should be able to sleep through the majority of the side effects symptoms. 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 I hope that you feel better Prescriptions: New amitriptyline 25 mg tablet 25 mg PO BEDTIME Qty: 30 RF: 0 No Action medroxyprogesterone 150 mg/mL syringe 150 mg IM [id number] RF: 0 eletriptan [Relpax] 20 mg tablet See Rx Instructions PO .COMPLEX Qty: 14 RF: 0 cyclobenzaprine 10 mg tablet 10 mg PO TID PRN (Reason: muscle spasm) Qty: 30 RF: 1 tramadol 50 mg tablet 50 - 100 mg PO BID PRN (Reason: pain) Qty: 20 RF: 0 trazodone 50 mg tablet 25 - 50 mg PO BEDTIME PRN (Reason: insomnia) RF: 0 sertraline 100 mg tablet 100 mg PO DAILY RF: 0 hydroxyzine HCl 25 mg tablet 50 mg PO DAILY PRN (Reason: anxiety) RF: 0 Referrals: Maribell Reza DO [Primary Care Provider] -
[2020-07-24] MEDS: KETOROLAC 60 MG/2 ML VIAL 15 MG IV (17:19)
[2020-07-24 18:31] LABS: Appearance Urine UA CLEAR; Bilirubin Urine UA NEGATIVE (NEGATIVE); Color Urine UA YELLOW; Glucose Urine UA NEGATIVE (Negative); Ketones Urine UA NEGATIVE (NEGATIVE); Leukocyte Esterase Urine UA NEGATIVE (NEGATIVE); Nitrite Urine UA NEGATIVE (Negative); Occult Blood Urine UA NEGATIVE (Negative); Protein Urine UA NEGATIVE (Negative); Urobilinogen Urine UA 0.2 E.U./dL (0.2)
[2020-07-24 18:42] LABS: RBC Urine 1-5/HPF (0-5/HPF); Squamous Epithelial Cell Urine 1-5 /HPF (0-5/HPF); WBC Urine 1-5/HPF (0-5/HPF)
[2020-07-24 18:43] LABS: Bacteria Urine Few (2-10); Culture Indicated Urine Cult Not Indicated; Mucus Urine 2+ (Negative)
== END 2020-07-24 19:03 | disposition home or self-care (01) ==
PROVIDERS: Emergency Provider Emergency Medicine; PCP Family Medicine
DX: M08.00 Unspecified juvenile rheumatoid arthritis of unspecified site (principal); R55 Syncope and collapse; E86.0 Dehydration; M45.9 Ankylosing spondylitis of unspecified sites in spine; G43.811 Other migraine, intractable, with status migrainosus
CPT/HCPCS: 36415; 80053; 81001; 81025; 82962; 83690; 83735; 85025; 96361; 96374; 99284; J1885